=== PATIENT | female | born 1970 | race African-American/Black ===

== ENCOUNTER 2016-11-04 14:26 | Inpatient (IN) | payer OTHER ==
[~2016-11-04] VITALS: Ht 165.1 cm; Wt 54.4 kg
[~2016-11-04 14:26] MED LIST: AMLO10TA4 PO; ASPI-1159 PO; ATOR10TA PO; FERR-63 PO; FLUT1DIS3 IH; HYDR-4135 PO; HYDR-523 PO; LOSA50TA20 PO; METO50TA5 PO; POTA20TA82 PO
[2016-11-04] MEDS ORDERED: SODIUM CHLORIDE 0.9% 1000ML BAG (SEPSIS BOLUS) IV ONE (15:00)
[2016-11-04 15:28] LABS: HEMATOCRIT. 32.2 % (36.0-48.0); HEMOGLOBIN. 10.5 g/dL (12.0-16.0); MEAN CORPUSCULAR HEMOGLOBIN 27.1 pg (28.0-32.0); MEAN CORPUSCULAR VOLUME 83.3 fL (81.0-99.0); MEAN PLATELET VOLUME 8.3 fl (7.4-10.4); PLATELET 120 x1000/uL (130-400); RED BLOOD CELL COUNT 3.87 mill/uL (4.2-5.4); RED CELL DISTRIBUTION WIDTH 15.4 % (11.6-14.6)
[2016-11-04 15:30] LABS: CHLORIDE 104 mEq/L (98-107)
[2016-11-04 15:31] LABS: INR 1.1; PROTHROMBIN TIME 11.3 sec (9.4-11.6)
[2016-11-04 15:38] LABS: CARBON DIOXIDE 20 mEq/L (21-32)
[2016-11-04 17:46] LABS: PLATELET ESTIMATE SLIGHTLY DECREASED
[2016-11-04 23:00] VITALS: BP 121/68
[2016-11-04] MEDS ORDERED: HYDR100T31 PO (23:21)
[2016-11-04] MEDS ORDERED: MIRT7.5T11 PO (23:21)
[2016-11-04] MEDS ORDERED: BUTA-251 PO (23:21)
[2016-11-04] MEDS ORDERED: MAX PO (23:21)
[2016-11-04] MEDS ORDERED: ONDA4TAB50 PO (23:21)
[2016-11-04] MEDS ORDERED: BUTALBITAL/ACETAMINOPHEN/CAFFEINE 50/325/40MG TABLET PO PRN (23:45)
[2016-11-04] MEDS ORDERED: ONDANSETRON HCL 4MG TABLET PO PRN (23:45)
[2016-11-05] VITALS: BP 121/68
[2016-11-05] MEDS ORDERED: IPRATROPIUM/ALBUTEROL 0.5-3(2.5)MG/3ML NEB HHN PRN (00:30)
[2016-11-05 04:00] VITALS: BP 109/66
[2016-11-05] MEDS: HYDRALAZINE HCL 100MG TABLET PO SCH ×3 (05:52→21:21)
[2016-11-05 06:27] LABS: HEMATOCRIT. 29.5 % (36.0-48.0); HEMOGLOBIN. 9.6 g/dL (12.0-16.0); MEAN CORPUSCULAR HEMOGLOBIN 27.5 pg (28.0-32.0); MEAN CORPUSCULAR VOLUME 84.5 fL (81.0-99.0); MEAN PLATELET VOLUME 8.1 fl (7.4-10.4); PLATELET 87 x1000/uL (130-400); RED CELL DISTRIBUTION WIDTH 15.4 % (11.6-14.6)
[2016-11-05 08:00] VITALS: BP 114/71
[2016-11-05] MEDS: ASPIRIN 81MG EC TABLET PO SCH (08:31)
[2016-11-05] MEDS: METOPROLOL TARTRATE 50MG TABLET PO SCH ×2 (08:32→21:00)
[2016-11-05] MEDS: HYDROCODONE/ACETAMINOPHEN 5/325MG TABLET PO PRN ×2 (08:50→21:21)
[2016-11-05] MEDS ORDERED: POTASSIUM CHLORIDE 20MEQ TABLET SR PO SCH (09:00)
[2016-11-05] MEDS ORDERED: TRIAMTERENE/HYDROCHLOROTHIAZID 75/50MG TABLET PO SCH (09:00)
[2016-11-05 12:00] VITALS: BP 94/56
[2016-11-05 16:00] VITALS: BP 93/50
[2016-11-05 16:22] LABS: PLATELET ESTIMATE DECREASED
[2016-11-05 20:00] VITALS: BP 100/60
[2016-11-05] MEDS ORDERED: MIRTAZAPINE 7.5 MG PO SCH (21:00)
[2016-11-05] MEDS: MIRTAZAPINE 15MG TABLET PO SCH (21:20)
[2016-11-06] VITALS: BP 105/63
[2016-11-06 04:00] VITALS: BP 97/54
[2016-11-06] MEDS: HYDRALAZINE HCL 100MG TABLET PO SCH ×3 (05:28→21:30)
[2016-11-06 08:00] VITALS: BP 101/39
[2016-11-06] MEDS: ASPIRIN 81MG EC TABLET PO SCH (08:48)
[2016-11-06] MEDS: HYDROCODONE/ACETAMINOPHEN 5/325MG TABLET PO PRN (08:51)
[2016-11-06] MEDS: METOPROLOL TARTRATE 50MG TABLET PO SCH (09:00)
[2016-11-06 12:00] VITALS: BP 94/54
[2016-11-06 17:36] VITALS: BP 99/61
[2016-11-06 20:00] VITALS: BP 108/64
[2016-11-06] MEDS: MIRTAZAPINE 15MG TABLET PO SCH (21:29)
[2016-11-07] VITALS (7 sets, daily range): BP systolic 92–140; BP diastolic 57–68
[2016-11-07 05:59] LABS: BASOPHILS % 0.7 % (0.0-2.0); EOSINOPHILS % 1.6 % (0.0-5.0); HEMATOCRIT. 26.3 % (36.0-48.0); HEMOGLOBIN. 8.6 g/dL (12.0-16.0); LYMPHOCYTES % 26.9 % (20.0-50.0); MEAN CORPUSCULAR HEMOGLOBIN 27.2 pg (28.0-32.0); MEAN CORPUSCULAR VOLUME 83.6 fL (81.0-99.0); MEAN PLATELET VOLUME 8.1 fl (7.4-10.4); MONOCYTES % 9.4 % (2.0-8.0); NEUTROPHILS % 61.4 % (40.0-76.0); PLATELET 77 x1000/uL (130-400); RED BLOOD CELL COUNT 3.15 mill/uL (4.2-5.4); RED CELL DISTRIBUTION WIDTH 15.2 % (11.6-14.6)
[2016-11-07] MEDS: HYDRALAZINE HCL 100MG TABLET PO SCH ×2 (06:00→14:00)
[2016-11-07] MEDS: ASPIRIN 81MG EC TABLET PO SCH (09:00)
[2016-11-07] MEDS: MORPHINE SULFATE 2 MG/ML CPJ (NOT FOR IM USE) IV PRN ×2 (09:05→18:48)
[2016-11-07] MEDS: HYDROCODONE/ACETAMINOPHEN 5/325MG TABLET PO PRN (11:21)
[2016-11-07] MEDS ORDERED: POTASSIUM CHLORIDE 10MEQ TABLET SR PO SCH (18:30)
[2016-11-07] MEDS: MIRTAZAPINE 15MG TABLET PO SCH (21:19)
[2016-11-08] VITALS (7 sets, daily range): BP systolic 94–112; BP diastolic 48–69
[2016-11-08] MEDS: HYDROCODONE/ACETAMINOPHEN 5/325MG TABLET PO PRN (00:45)
[2016-11-08 05:21] LABS: BASOPHILS % 0.6 % (0.0-2.0); HEMATOCRIT. 23.6 % (36.0-48.0); HEMOGLOBIN. 7.7 g/dL (12.0-16.0); LYMPHOCYTES % 35.3 % (20.0-50.0); MEAN CORPUSCULAR HEMOGLOBIN 27.3 pg (28.0-32.0); MEAN CORPUSCULAR VOLUME 83.4 fL (81.0-99.0); MEAN PLATELET VOLUME 7.9 fl (7.4-10.4); MONOCYTES % 9.6 % (2.0-8.0); NEUTROPHILS % 52.5 % (40.0-76.0); PLATELET 70 x1000/uL (130-400); RED BLOOD CELL COUNT 2.83 mill/uL (4.2-5.4); RED CELL DISTRIBUTION WIDTH 15.4 % (11.6-14.6)
[2016-11-08 06:12] LABS: PHOSPHORUS 2.9 mg/dL (2.5-4.9)
[2016-11-08] MEDS ORDERED: POTASSIUM CHLORIDE 20MEQ TABLET SR PO NR (08:14)
[2016-11-08] MEDS: ASPIRIN 81MG EC TABLET PO SCH (09:33)
[2016-11-08] MEDS: METRONIDAZOLE 500MG TABLET PO SCH ×2 (13:11→21:56)
[2016-11-08] MEDS: HYDROMORPHONE HCL/PF 2MG/ML CPJ IV PRN ×2 (16:47→23:02)
[2016-11-08] MEDS: MIRTAZAPINE 15MG TABLET PO SCH (21:56)
[2016-11-09] VITALS (8 sets, daily range): BP systolic 90–120; BP diastolic 50–73
[2016-11-09] MEDS: ASPIRIN 81MG EC TABLET PO SCH (08:09)
[2016-11-09] MEDS: METRONIDAZOLE 500MG TABLET PO SCH (08:09)
[2016-11-09] MEDS: HYDROMORPHONE HCL/PF 2MG/ML CPJ IV PRN (08:11)
[2016-11-09 09:40] LABS: BASOPHILS % 0.7 % (0.0-2.0); EOSINOPHILS % 1.7 % (0.0-5.0); HEMATOCRIT. 27.6 % (36.0-48.0); HEMOGLOBIN. 8.9 g/dL (12.0-16.0); LYMPHOCYTES % 27.1 % (20.0-50.0); MEAN CORPUSCULAR HEMOGLOBIN 27.4 pg (28.0-32.0); MEAN CORPUSCULAR VOLUME 85.1 fL (81.0-99.0); MEAN PLATELET VOLUME 7.7 fl (7.4-10.4); MONOCYTES % 8.1 % (2.0-8.0); NEUTROPHILS % 62.4 % (40.0-76.0); PLATELET 96 x1000/uL (130-400); RED BLOOD CELL COUNT 3.24 mill/uL (4.2-5.4); RED CELL DISTRIBUTION WIDTH 15.6 % (11.6-14.6)
[2016-11-09] MEDS ORDERED: HEPARIN SODIUM 1,000 UNIT/1ML VIAL IV NR (14:30)
[2016-11-09] MEDS ORDERED: EPOETIN ALFA 4000UNITS/ML VIAL SUBCUT SCH (21:00)
== END 2016-11-09 18:20 | disposition home or self-care (01) | DRG 425 ==
LOC: ER 14:48 → 7WST 19:36 → EDBEDREQ 19:44 → CANRESERV 19:48 → ENRESERV 19:48
PROVIDERS: ADMIT Internal Medicine; ATTEND Internal Medicine
PROC: 5A1D60Z (ICD-10-PCS; principal; 2016-11-04)
DX: E87.70 Fluid overload, unspecified (principal); I13.2 Hypertensive heart and chronic kidney disease with heart failure and with stage 5 chronic kidney disease, or end stage renal disease; E43 Unspecified severe protein-calorie malnutrition; I95.9 Hypotension, unspecified; N18.6 End stage renal disease; I50.9 Heart failure, unspecified; Z95.2 Presence of prosthetic heart valve; N15.9 Renal tubulo-interstitial disease, unspecified; D25.9 Leiomyoma of uterus, unspecified; D63.8 Anemia in other chronic diseases classified elsewhere; J44.9 Chronic obstructive pulmonary disease, unspecified; K52.9 Noninfective gastroenteritis and colitis, unspecified; N20.0 Calculus of kidney; Z86.73 Personal history of transient ischemic attack (TIA), and cerebral infarction without residual deficits; Z68.20 Body mass index [BMI] 20.0-20.9, adult; Z68.1 Body mass index [BMI] 19.9 or less, adult; Z91.15 Patient's noncompliance with renal dialysis; Z99.2 Dependence on renal dialysis
CPT/HCPCS: 36415; 70450; 71010; 71250; 74176; 80048; 80053; 82270; 82728; 83540; 83550; 83605; 84100; 85025; 85610; 86850; 86870; 86900; 86920; 87040; 93005; 93306; 96374; 97162; 99285; A6261; J0885; J1170; J1644; J2270; J7030; J7040; P9016

== ENCOUNTER 2016-12-01 03:15 | Inpatient (IN) | payer OTHER ==
[~2016-12-01] VITALS: Ht 160 cm; Wt 64.4 kg
[2016-12-01] VITALS (7 sets, daily range): BP systolic 121–188; BP diastolic 59–103
[~2016-12-01 03:15] MED LIST changes: -AMLO10TA4 PO; -ATOR10TA PO; +BUTA-251 PO; -FERR-63 PO; -FLUT1DIS3 IH; -HYDR-4135 PO; -LOSA50TA20 PO; -METO50TA5 PO; +MIRT7.5T11 PO; +ONDA4TAB50 PO; -POTA20TA82 PO
[2016-12-01] MEDS ORDERED: KETOROLAC 30MG/ML VIAL IV STA (03:26)
[2016-12-01] MEDS ORDERED: ONDANSETRON HCL 4MG/2ML VIAL IV STA (03:26)
[2016-12-01 03:56] LABS: BASOPHILS % 1.6 % (0.0-2.0); EOSINOPHILS % 3.4 % (0.0-5.0); HEMATOCRIT. 26.7 % (36.0-48.0); LYMPHOCYTES % 36.3 % (20.0-50.0); MEAN CORPUSCULAR HEMOGLOBIN 29.5 pg (28.0-32.0); MEAN PLATELET VOLUME 7.9 fl (7.4-10.4); MONOCYTES % 7.4 % (2.0-8.0); NEUTROPHILS % 51.3 % (40.0-76.0); PLATELET 130 x1000/uL (130-400); RED BLOOD CELL COUNT 3.06 mill/uL (4.2-5.4); RED CELL DISTRIBUTION WIDTH 17.4 % (11.6-14.6)
[2016-12-01 04:04] LABS: HCG SCREEN NEGATIVE
[2016-12-01 04:10] LABS: INR 1.1; PROTHROMBIN TIME 11.3 sec (9.4-11.6)
[2016-12-01 04:12] LABS: CARBON DIOXIDE 32 mEq/L (21-32); CHLORIDE 104 mEq/L (98-107)
[2016-12-01] MEDS ORDERED: POTASSIUM CHLORIDE 20MEQ TABLET SR PO ONE (05:00)
[2016-12-01] MEDS ORDERED: POTASSIUM CHLORIDE INJ 40 MEQ in DEXT 5% WATER 250 ML IV ONE (05:00)
[2016-12-01] MEDS ORDERED: HYDRALAZINE 20MG/ML VIAL IV ONE (05:00)
[2016-12-01] MEDS ORDERED: MORPHINE SULFATE 4 MG/ML CPJ (NOT FOR IM USE) IV ONE (05:45)
[2016-12-01 06:58] LABS: CLARITY URINE CLOUDY (CLEAR); COLOR URINE YELLOW (YELLOW); GLUCOSE URINE NEGATIVE (NEGATIVE); KETONES URINE NEGATIVE (NEGATIVE); LEUKOCYTE ESTERASE URINE 2+ (NEGATIVE); NITRITE URINE NEGATIVE (NEGATIVE); OCCULT BLOOD URINE 1+ (NEGATIVE); PH URINE 6.5 (4.5-8.0); PROTEIN URINE 2+ (NEGATIVE); SPECIFIC GRAVITY URINE 1.012 (1.005-1.030); UROBILINOGEN URINE 0.2 E.U./dL (0.2-1.0)
[2016-12-01] MEDS ORDERED: IPRATROPIUM/ALBUTEROL 0.5-3(2.5)MG/3ML NEB INH PRN (10:45)
[2016-12-01] MEDS ORDERED: ONDANSETRON HCL 4MG/2ML VIAL IV PRN (10:45)
[2016-12-01] MEDS ORDERED: DIPHENHYDRAMINE 50MG/ML VIAL IV PRN (10:45)
[2016-12-01] MEDS ORDERED: ACETAMINOPHEN 325MG TABLET PO PRN (10:45)
[2016-12-01] MEDS: CLONIDINE 0.1MG TABLET PO PRN (14:14)
[2016-12-01] MEDS: MORPHINE SULFATE 4 MG/ML CPJ (NOT FOR IM USE) IV PRN ×2 (14:15→18:25)
[2016-12-01] MEDS ORDERED: AMLO10TA80 PO (15:46)
[2016-12-01] MEDS ORDERED: METO50TA5 PO (15:46)
[2016-12-01] MEDS: METOPROLOL TARTRATE 50MG TABLET PO SCH ×3 (16:31→20:46)
[2016-12-01] MEDS: AMLODIPINE 10MG TABLET PO SCH (16:31)
[2016-12-01] MEDS ORDERED: CEFTRIAXONE 1 G PREMIX 50 ML IV SCH (17:00)
[2016-12-01] MEDS ORDERED: ENOXAPARIN 60MG/0.6ML SYR SUBCUT SCH (18:30)
[2016-12-01] MEDS: HYDROCODONE/ACETAMINOPHEN 5/325MG TABLET PO PRN (20:45)
[2016-12-02] VITALS (8 sets, daily range): BP systolic 148–177; BP diastolic 76–89
[2016-12-02] MEDS: MORPHINE SULFATE 4 MG/ML CPJ (NOT FOR IM USE) IV PRN ×3 (03:29→12:03)
[2016-12-02 06:49] LABS: BASOPHILS % 0.8 % (0.0-2.0); EOSINOPHILS % 3.8 % (0.0-5.0); HEMATOCRIT. 25.5 % (36.0-48.0); HEMOGLOBIN. 8.5 g/dL (12.0-16.0); LYMPHOCYTES % 24.5 % (20.0-50.0); MEAN CORPUSCULAR HEMOGLOBIN 29.3 pg (28.0-32.0); MEAN CORPUSCULAR VOLUME 88.2 fL (81.0-99.0); MEAN PLATELET VOLUME 7.8 fl (7.4-10.4); MONOCYTES % 7.2 % (2.0-8.0); NEUTROPHILS % 63.7 % (40.0-76.0); PLATELET 119 x1000/uL (130-400); RED CELL DISTRIBUTION WIDTH 17.9 % (11.6-14.6)
[2016-12-02] MEDS: AMLODIPINE 10MG TABLET PO SCH (08:04)
[2016-12-02] MEDS: METOPROLOL TARTRATE 50MG TABLET PO SCH (08:04)
[2016-12-02] MEDS: CLONIDINE 0.1MG TABLET PO PRN (12:02)
[2016-12-02] MEDS: HYDROCODONE/ACETAMINOPHEN 5/325MG TABLET PO PRN (16:06)
== END 2016-12-02 16:35 | disposition home or self-care (01) | DRG 194 ==
LOC: ER 03:15 → 7WST 05:53 → ENRESERV 07:02
PROVIDERS: ADMIT Internal Medicine; ATTEND Internal Medicine
PROC: 5A1D00Z (ICD-10-PCS; principal; 2016-12-01)
DX: I13.2 Hypertensive heart and chronic kidney disease with heart failure and with stage 5 chronic kidney disease, or end stage renal disease (principal); N18.6 End stage renal disease; E27.8 Other specified disorders of adrenal gland; E44.0 Moderate protein-calorie malnutrition; R16.0 Hepatomegaly, not elsewhere classified; N39.0 Urinary tract infection, site not specified; R10.33 Periumbilical pain; J44.9 Chronic obstructive pulmonary disease, unspecified; R74.8 Abnormal levels of other serum enzymes; I50.9 Heart failure, unspecified; N20.0 Calculus of kidney; I70.90 Unspecified atherosclerosis; E87.6 Hypokalemia; D63.1 Anemia in chronic kidney disease; Z86.73 Personal history of transient ischemic attack (TIA), and cerebral infarction without residual deficits; Z99.2 Dependence on renal dialysis; Z87.442 Personal history of urinary calculi
CPT/HCPCS: 36415; 74176; 76700; 80048; 80053; 80061; 81001; 83690; 84443; 84484; 84703; 85025; 85610; 87040; 87077; 87086; 87186; 96365; 96375; 99285; C1893; J0360; J0696; J1650; J1885; J2270; J2405; J3480; J7030; J7050; J7060

== ENCOUNTER 2017-01-04 23:49 | Inpatient (IN) | payer OTHER ==
[~2017-01-04] VITALS: Ht 160 cm; Wt 62.3 kg
[~2017-01-04 23:49] MED LIST changes: +AMLO10TA80 PO; -ASPI-1159 PO; -BUTA-251 PO; -HYDR-523 PO; +METO50TA5 PO; -MIRT7.5T11 PO; -ONDA4TAB50 PO
[2017-01-05 00:52] LABS: CARBON DIOXIDE 26 mEq/L (21-32); CHLORIDE 102 mEq/L (98-107); TROPONIN I 0.04 ng/mL (0.00-0.04)
[2017-01-05 00:57] LABS: BASOPHILS % 1.7 % (0.0-2.0); EOSINOPHILS % 3.5 % (0.0-5.0); HEMATOCRIT. 31.3 % (36.0-48.0); HEMOGLOBIN. 10.4 g/dL (12.0-16.0); LYMPHOCYTES % 33.1 % (20.0-50.0); MEAN CORPUSCULAR HEMOGLOBIN 29.1 pg (28.0-32.0); MEAN CORPUSCULAR VOLUME 87.4 fL (81.0-99.0); MEAN PLATELET VOLUME 7.6 fl (7.4-10.4); MONOCYTES % 10.6 % (2.0-8.0); NEUTROPHILS % 51.1 % (40.0-76.0); PLATELET 194 x1000/uL (130-400); RED BLOOD CELL COUNT 3.59 mill/uL (4.2-5.4); RED CELL DISTRIBUTION WIDTH 16.2 % (11.6-14.6)
[2017-01-05 01:01] LABS: PROTHROMBIN TIME 10.9 sec (9.4-11.6)
[2017-01-05 01:04] LABS: HCG SCREEN NEGATIVE
[2017-01-05] MEDS ORDERED: ACETAMINOPHEN 325MG TABLET PO ONE (01:30)
[2017-01-05 04:00] VITALS: BP 182/77
[2017-01-05 04:20] VITALS: BP 182/77
[2017-01-05] MEDS ORDERED: IPRATROPIUM/ALBUTEROL 0.5-3(2.5)MG/3ML NEB HHN PRN (05:00)
[2017-01-05] MEDS ORDERED: CLONIDINE 0.1MG TABLET PO PRN (05:00)
[2017-01-05] MEDS: METOPROLOL TARTRATE 50MG TABLET PO SCH ×2 (05:14→21:36)
[2017-01-05] MEDS: HYDROCODONE/ACETAMINOPHEN 10/325MG TABLET PO PRN ×3 (05:15→18:45)
[2017-01-05 07:15] VITALS: BP 156/70
[2017-01-05] MEDS: AMLODIPINE 10MG TABLET PO SCH (09:00)
[2017-01-05 10:20] LABS: BASOPHILS % 1.1 % (0.0-2.0); EOSINOPHILS % 3.5 % (0.0-5.0); HEMATOCRIT. 30.2 % (36.0-48.0); HEMOGLOBIN. 9.9 g/dL (12.0-16.0); LYMPHOCYTES % 37.8 % (20.0-50.0); MEAN CORPUSCULAR HEMOGLOBIN 28.4 pg (28.0-32.0); MEAN CORPUSCULAR VOLUME 86.5 fL (81.0-99.0); MEAN PLATELET VOLUME 7.5 fl (7.4-10.4); MONOCYTES % 9.3 % (2.0-8.0); NEUTROPHILS % 48.3 % (40.0-76.0); PLATELET 193 x1000/uL (130-400); RED CELL DISTRIBUTION WIDTH 16.3 % (11.6-14.6)
[2017-01-05 10:56] LABS: CARBON DIOXIDE 28 mEq/L (21-32); CHLORIDE 102 mEq/L (98-107); HDL CHOLESTEROL 53 mg/dL (40-59); LDL CHOLESTEROL 97 mg/dL (5-100)
[2017-01-05 11:25] VITALS: BP 190/83
[2017-01-05 15:32] VITALS: BP 125/85
[2017-01-06] VITALS: BP 152/75
[2017-01-06] MEDS: HYDROCODONE/ACETAMINOPHEN 10/325MG TABLET PO PRN ×4 (02:44→21:54)
[2017-01-06 04:00] VITALS: BP 153/72
[2017-01-06 08:00] VITALS: BP 143/72
[2017-01-06] MEDS: AMLODIPINE 10MG TABLET PO SCH (09:02)
[2017-01-06] MEDS: METOPROLOL TARTRATE 50MG TABLET PO SCH ×2 (09:02→20:31)
[2017-01-06 12:00] VITALS: BP 147/65
[2017-01-06 12:02] LABS: CARBON DIOXIDE 26 mEq/L (21-32); CHLORIDE 105 mEq/L (98-107)
[2017-01-06 12:15] LABS: HEMOGLOBIN 10.2 g/dL (12.0-16.0); MEAN CORPUSCULAR HEMOGLOBIN 28.3 pg (28.0-32.0); MEAN CORPUSCULAR VOLUME 86.3 fL (81.0-99.0); PLATELET 200 x1000/uL (130-400); RED BLOOD CELL COUNT 3.59 mill/uL (4.2-5.4)
[2017-01-06 16:00] VITALS: BP 161/78
[2017-01-06 20:00] VITALS: BP 138/74
[2017-01-07] VITALS: BP 142/79
[2017-01-07 04:00] VITALS: BP_SYST 144; BP_SYST 188; BP_DIAS 72; BP_DIAS 86
[2017-01-07] MEDS: HYDROCODONE/ACETAMINOPHEN 10/325MG TABLET PO PRN ×3 (04:05→16:28)
[2017-01-07 08:12] VITALS: BP 145/70
[2017-01-07] MEDS: METOPROLOL TARTRATE 50MG TABLET PO SCH (09:00)
[2017-01-07] MEDS: AMLODIPINE 10MG TABLET PO SCH (09:00)
[2017-01-07 12:00] VITALS: BP 182/88
[2017-01-07] MEDS ORDERED: HEPARIN SODIUM 1,000 UNIT/1ML VIAL IV NR (15:45)
[2017-01-07 16:00] VITALS: BP 154/65
[2017-01-07 18:07] VITALS: BP 154/65
== END 2017-01-07 18:20 | disposition home or self-care (01) | DRG 113 ==
LOC: ER 23:49 → 6WST 01-05 01:19 → EDBEDREQ 01-05 02:24 → ENRESERV 01-05 02:39
PROVIDERS: ADMIT Internal Medicine; ATTEND Internal Medicine
DX: J06.9 Acute upper respiratory infection, unspecified (principal); J96.00 Acute respiratory failure, unspecified whether with hypoxia or hypercapnia; I13.2 Hypertensive heart and chronic kidney disease with heart failure and with stage 5 chronic kidney disease, or end stage renal disease; Z93.0 Tracheostomy status; N18.6 End stage renal disease; E88.09 Other disorders of plasma-protein metabolism, not elsewhere classified; E44.1 Mild protein-calorie malnutrition; D63.8 Anemia in other chronic diseases classified elsewhere; E87.6 Hypokalemia; Z60.2 Problems related to living alone; I25.10 Atherosclerotic heart disease of native coronary artery without angina pectoris; I50.9 Heart failure, unspecified; J44.9 Chronic obstructive pulmonary disease, unspecified; Z95.1 Presence of aortocoronary bypass graft; I69.351 Hemiplegia and hemiparesis following cerebral infarction affecting right dominant side; Z99.2 Dependence on renal dialysis; Z99.3 Dependence on wheelchair; Z68.24 Body mass index [BMI] 24.0-24.9, adult
CPT/HCPCS: 36415; 70450; 71010; 74000; 80053; 80061; 83036; 83605; 83690; 84443; 84484; 84703; 85025; 85027; 85610; 87040; 87804; 93005; 99285; J1644; J7030

== ENCOUNTER 2017-07-22 08:06 | Emergency (ER) | payer MEDICAID ==
[~2017-07-22] VITALS: Ht 160 cm; Wt 65.0 kg
[~2017-07-22 08:06] MED LIST changes: -AMLO10TA80 PO; +ASPI-1159 PO; +DIPH50CA38 PO; +METO-539 PO; -METO50TA5 PO
[2017-07-22] MEDS ORDERED: MORPHINE SULFATE 4 MG/ML CPJ (NOT FOR IM USE) IV STA (08:18)
[2017-07-22] MEDS ORDERED: ONDANSETRON HCL 4MG/2ML VIAL IV STA (08:18)
[2017-07-22 08:40] LABS: CLARITY URINE CLEAR (CLEAR); COLOR URINE YELLOW (YELLOW); KETONES URINE NEGATIVE (NEGATIVE); LEUKOCYTE ESTERASE URINE TRACE (NEGATIVE); NITRITE URINE NEGATIVE (NEGATIVE); OCCULT BLOOD URINE TRACE (NEGATIVE); PROTEIN URINE NEGATIVE (NEGATIVE); UROBILINOGEN URINE 0.2 E.U./dL (0.2-1.0)
[2017-07-22 08:51] LABS: BASOPHILS % 1.4 % (0.0-2.0); HEMATOCRIT. 32.5 % (36.0-48.0); HEMOGLOBIN. 10.8 g/dL (12.0-16.0); LYMPHOCYTES % 31.3 % (20.0-50.0); MEAN CORPUSCULAR HEMOGLOBIN 30.5 pg (28.0-32.0); MEAN CORPUSCULAR VOLUME 91.5 fL (81.0-99.0); MONOCYTES % 6.1 % (2.0-8.0); NEUTROPHILS % 58.2 % (40.0-76.0); PLATELET 144 x1000/uL (130-400); RED BLOOD CELL COUNT 3.55 mill/uL (4.2-5.4); RED CELL DISTRIBUTION WIDTH 16.2 % (11.6-14.6)
[2017-07-22 08:56] LABS: CHLORIDE 108 mEq/L (98-107)
[2017-07-22 08:59] LABS: INR 1.1
[2017-07-22 09:21] LABS: HCG SCREEN NEGATIVE
[2017-07-22 10:59] VITALS: BP 229/110
== END 2017-07-22 11:35 | disposition home or self-care (01) ==
LOC: ER 08:13
DX: R10.9 Unspecified abdominal pain (principal); R11.0 Nausea; I13.2 Hypertensive heart and chronic kidney disease with heart failure and with stage 5 chronic kidney disease, or end stage renal disease; I50.9 Heart failure, unspecified; N18.6 End stage renal disease; Z86.73 Personal history of transient ischemic attack (TIA), and cerebral infarction without residual deficits; Z95.1 Presence of aortocoronary bypass graft; Z99.2 Dependence on renal dialysis; Z98.890 Other specified postprocedural states; Z79.82 Long term (current) use of aspirin; Z79.899 Other long term (current) drug therapy
CPT/HCPCS: 36415; 74176; 80053; 81003; 83690; 84703; 85025; 85610; 93005; 96374; 96375; 99285; J2270; J2405

== ENCOUNTER 2017-09-02 18:04 | Emergency (ER) | payer SELFPAY ==
[~2017-09-02] VITALS: Ht 160 cm; Wt 70.0 kg
[2017-09-02] MEDS ORDERED: MORPHINE SULFATE 4 MG/ML CPJ (NOT FOR IM USE) IV STA (23:29)
[2017-09-02] MEDS ORDERED: ONDANSETRON HCL 4MG/2ML VIAL IV STA (23:29)
[2017-09-02 23:55] LABS: BASOPHILS % 1.5 % (0.0-2.0); HEMOGLOBIN. 12.2 g/dL (12.0-16.0); LYMPHOCYTES % 43.3 % (20.0-50.0); MEAN CORPUSCULAR HEMOGLOBIN 29.3 pg (28.0-32.0); MEAN PLATELET VOLUME 7.7 fl (7.4-10.4); MONOCYTES % 8.5 % (2.0-8.0); NEUTROPHILS % 43.7 % (40.0-76.0); PLATELET 167 x1000/uL (130-400); RED BLOOD CELL COUNT 4.16 mill/uL (4.2-5.4); RED CELL DISTRIBUTION WIDTH 15.7 % (11.6-14.6)
[2017-09-03 00:02] LABS: CHLORIDE 106 mEq/L (98-107)
[2017-09-03 06:31] VITALS: BP 194/91
== END 2017-09-03 06:44 | disposition home or self-care (01) ==
LOC: ER 18:04
DX: R10.30 Lower abdominal pain, unspecified (principal); R07.89 Other chest pain; R11.0 Nausea; I13.11 Hypertensive heart and chronic kidney disease without heart failure, with stage 5 chronic kidney disease, or end stage renal disease; N18.6 End stage renal disease; I69.351 Hemiplegia and hemiparesis following cerebral infarction affecting right dominant side; I69.322 Dysarthria following cerebral infarction; Z99.2 Dependence on renal dialysis
CPT/HCPCS: 36415; 71045; 74176; 80053; 83690; 84484; 85025; 93005; 96374; 96375; 99285; C1893; J2270; J2405; Z7610

== ENCOUNTER 2017-10-01 21:02 | Emergency (ER) | payer SELFPAY ==
[~2017-10-01] VITALS: Ht 160 cm; Wt 70.0 kg
[2017-10-01] MEDS ORDERED: IBUPROFEN 600MG TABLET PO ONE (22:30)
[2017-10-01] MEDS ORDERED: HYDROCODONE/ACETAMINOPHEN 5/325MG TABLET PO ONE (22:30)
[2017-10-01] MEDS ORDERED: CLONIDINE 0.2MG TABLET PO ONE (22:45)
[2017-10-02 00:30] LABS: HCG SCREEN INDETERMINATE
[2017-10-02 03:40] VITALS: BP 146/76
== END 2017-10-02 04:48 | disposition home or self-care (01) ==
LOC: ER 21:02
DX: S30.1XXA Contusion of abdominal wall, initial encounter (principal); S20.219A Contusion of unspecified front wall of thorax, initial encounter; S80.01XA Contusion of right knee, initial encounter; I13.2 Hypertensive heart and chronic kidney disease with heart failure and with stage 5 chronic kidney disease, or end stage renal disease; N18.6 End stage renal disease; I50.9 Heart failure, unspecified; W01.0XXA Fall on same level from slipping, tripping and stumbling without subsequent striking against object, initial encounter; Y93.9 Activity, unspecified; Y92.89 Other specified places as the place of occurrence of the external cause; Z95.1 Presence of aortocoronary bypass graft; Z99.2 Dependence on renal dialysis; Z86.73 Personal history of transient ischemic attack (TIA), and cerebral infarction without residual deficits
CPT/HCPCS: 36415; 71250; 74176; 84702; 84703; 99285

== ENCOUNTER 2017-12-22 10:58 | Inpatient (IN) | payer MEDICAID ==
[~2017-12-22] VITALS: Ht 157.5 cm; Wt 71.7 kg
[2017-12-22] MEDS ORDERED: IBUPROFEN 600MG TABLET PO STA (11:22)
[2017-12-22 12:12] LABS: PROTHROMBIN TIME 10.3 sec (9.1-11.1)
[2017-12-22 12:15] LABS: CHLORIDE 98 mEq/L (98-107)
[2017-12-22 12:19] LABS: BASOPHILS % 0.8 % (0.0-2.0); EOSINOPHILS % 1.4 % (0.0-5.0); HEMATOCRIT. 36.2 % (36.0-48.0); HEMOGLOBIN. 12.4 g/dL (12.0-16.0); LYMPHOCYTES % 17.9 % (20.0-50.0); MEAN CORPUSCULAR HEMOGLOBIN 31.7 pg (28.0-32.0); MEAN CORPUSCULAR VOLUME 92.4 fL (81.0-99.0); MEAN PLATELET VOLUME 8.2 fl (7.4-10.4); MONOCYTES % 8.1 % (2.0-8.0); NEUTROPHILS % 71.8 % (40.0-76.0); PLATELET 199 x1000/uL (130-400); RED BLOOD CELL COUNT 3.92 mill/uL (4.2-5.4); RED CELL DISTRIBUTION WIDTH 16.1 % (11.6-14.6)
[2017-12-22] MEDS ORDERED: HYDROCODONE/ACETAMINOPHEN 5/325MG TABLET PO ONE (13:00)
[2017-12-22] MEDS ORDERED: DOCUSATE SODIUM 100MG CAPSULE PO PRN (14:30)
[2017-12-22] MEDS ORDERED: LORAZEPAM 2MG/ML CPJ IV PRN (14:30)
[2017-12-22] MEDS: CLONIDINE 0.1MG TABLET PO PRN (14:43)
[2017-12-22] MEDS: METOPROLOL TARTRATE 25MG TABLET PO SCH ×2 (14:55→22:38)
[2017-12-22 15:25] VITALS: BP 130/75
[2017-12-22] MEDS: AMLODIPINE 10MG TABLET PO SCH (16:00)
[2017-12-22] MEDS ORDERED: HYDR-4135 PO (16:34)
[2017-12-22] MEDS ORDERED: COR12 PO (16:34)
[2017-12-22] MEDS ORDERED: PROT40 PO (16:34)
[2017-12-22] MEDS ORDERED: AMLO10TA80 PO (16:34)
[2017-12-22] MEDS: HYDROCODONE/ACETAMINOPHEN 5/325MG TABLET PO PRN (17:51)
[2017-12-22 20:00] VITALS: BP 140/63
[2017-12-22] MEDS: MORPHINE SULFATE 4 MG/ML CPJ (NOT FOR IM USE) IV PRN (20:44)
[2017-12-23] VITALS: BP 135/75
[2017-12-23 03:13] VITALS: BP 155/76
[2017-12-23] MEDS: MORPHINE SULFATE 4 MG/ML CPJ (NOT FOR IM USE) IV PRN ×4 (03:14→22:00)
[2017-12-23] MEDS: ONDANSETRON HCL 4MG/2ML INJ IV PRN ×3 (03:17→15:48)
[2017-12-23 06:29] LABS: BASOPHILS % 0.9 % (0.0-2.0); EOSINOPHILS % 0.4 % (0.0-5.0); HEMATOCRIT. 32.7 % (36.0-48.0); HEMOGLOBIN. 10.7 g/dL (12.0-16.0); LYMPHOCYTES % 16.4 % (20.0-50.0); MEAN CORPUSCULAR HEMOGLOBIN 30.8 pg (28.0-32.0); MEAN CORPUSCULAR VOLUME 93.5 fL (81.0-99.0); MEAN PLATELET VOLUME 7.5 fl (7.4-10.4); NEUTROPHILS % 72.3 % (40.0-76.0); PLATELET 149 x1000/uL (130-400); RED CELL DISTRIBUTION WIDTH 15.8 % (11.6-14.6)
[2017-12-23 06:54] LABS: CHLORIDE 99 mEq/L (98-107)
[2017-12-23 07:14] LABS: HDL CHOLESTEROL 55 mg/dL (40-59); LDL CHOLESTEROL 93 mg/dL (5-100)
[2017-12-23 08:00] VITALS: BP 176/83
[2017-12-23] MEDS: ACETAMINOPHEN 325MG TABLET PO PRN ×3 (08:21→22:02)
[2017-12-23] MEDS: METOPROLOL TARTRATE 25MG TABLET PO SCH ×2 (09:00→21:00)
[2017-12-23] MEDS: AMLODIPINE 10MG TABLET PO SCH ×2 (09:00→13:14)
[2017-12-23 12:00] VITALS: BP 174/94
[2017-12-23] MEDS: LEVOFLOXACIN 500MG PREMIX 100 ML IV NR ×2 (12:00→16:05)
[2017-12-23] MEDS ORDERED: VANCOMYCIN 1500MG in DEXTROSE 5% WATER 250ML IV SCH (12:00)
[2017-12-23] MEDS: CLONIDINE 0.1MG TABLET PO PRN (12:41)
[2017-12-23] MEDS: HYDRALAZINE HCL 50MG TABLET PO SCH ×2 (14:52→21:10)
[2017-12-23 16:00] VITALS: BP 176/86
[2017-12-23 16:50] LABS: CLARITY URINE CLOUDY (CLEAR); COLOR URINE YELLOW (YELLOW); KETONES URINE NEGATIVE (NEGATIVE); LEUKOCYTE ESTERASE URINE 2+ (NEGATIVE); NITRITE URINE NEGATIVE (NEGATIVE); OCCULT BLOOD URINE NEGATIVE (NEGATIVE); PH URINE 8.5 (4.5-8.0); PROTEIN URINE 1+ (NEGATIVE); SPECIFIC GRAVITY URINE 1.012 (1.005-1.030)
[2017-12-23 21:37] VITALS: BP 129/72
[2017-12-24] VITALS: BP 104/58
[2017-12-24 04:00] VITALS: BP 152/78
[2017-12-24] MEDS: ACETAMINOPHEN 325MG TABLET PO PRN ×3 (04:10→20:08)
[2017-12-24] MEDS: MORPHINE SULFATE 4 MG/ML CPJ (NOT FOR IM USE) IV PRN ×3 (04:10→20:08)
[2017-12-24] MEDS: HYDRALAZINE HCL 50MG TABLET PO SCH ×3 (05:14→21:21)
[2017-12-24] MEDS: ONDANSETRON HCL 4MG/2ML INJ IV PRN ×2 (05:19→12:36)
[2017-12-24 06:47] LABS: BASOPHILS % 0.5 % (0.0-2.0); EOSINOPHILS % 0.6 % (0.0-5.0); HEMATOCRIT. 30.2 % (36.0-48.0); HEMOGLOBIN. 10.2 g/dL (12.0-16.0); MEAN CORPUSCULAR HEMOGLOBIN 31.2 pg (28.0-32.0); MEAN CORPUSCULAR VOLUME 92.4 fL (81.0-99.0); MEAN PLATELET VOLUME 7.8 fl (7.4-10.4); MONOCYTES % 9.6 % (2.0-8.0); NEUTROPHILS % 81.3 % (40.0-76.0); PLATELET 121 x1000/uL (130-400); RED BLOOD CELL COUNT 3.27 mill/uL (4.2-5.4); RED CELL DISTRIBUTION WIDTH 15.7 % (11.6-14.6)
[2017-12-24 08:00] VITALS: BP 111/63
[2017-12-24] MEDS: AMLODIPINE 10MG TABLET PO SCH (08:13)
[2017-12-24] MEDS: METOPROLOL TARTRATE 25MG TABLET PO SCH ×2 (08:14→20:11)
[2017-12-24] MEDS ORDERED: SODIUM BICARBONATE 4% (2.4MEQ) 5ML VIAL IV ONE (10:17)
[2017-12-24] MEDS ORDERED: LIDOCAINE HCL 1% 20ML VIAL (Pyxis) INJ ONE (10:17)
[2017-12-24 12:00] VITALS: BP 155/78
[2017-12-24 16:00] VITALS: BP 102/53
[2017-12-24] MEDS: HYDROCODONE/ACETAMINOPHEN 5/325MG TABLET PO PRN (16:33)
[2017-12-24 20:00] VITALS: BP 113/65
[2017-12-25] VITALS: BP 99/48
[2017-12-25 04:00] VITALS: BP 108/59
[2017-12-25] MEDS: HYDROCODONE/ACETAMINOPHEN 5/325MG TABLET PO PRN ×2 (04:24→10:36)
[2017-12-25] MEDS: HYDRALAZINE HCL 50MG TABLET PO SCH ×3 (05:55→21:14)
[2017-12-25 08:00] VITALS: BP 110/59
[2017-12-25] MEDS: METOPROLOL TARTRATE 25MG TABLET PO SCH ×2 (08:31→20:49)
[2017-12-25] MEDS: AMLODIPINE 10MG TABLET PO SCH (08:31)
[2017-12-25] MEDS ORDERED: LEVOFLOXACIN 250MG PREMIX 50 ML IV SCH (11:00)
[2017-12-25 12:00] VITALS: BP 127/68
[2017-12-25] MEDS ORDERED: VANCOMYCIN 750 MG PREMIX 150 ML IV SCH (12:30)
[2017-12-25] MEDS: MORPHINE SULFATE 4 MG/ML CPJ (NOT FOR IM USE) IV PRN ×2 (15:54→22:00)
[2017-12-25 16:00] VITALS: BP 129/64
[2017-12-25 20:00] VITALS: BP 154/76
[2017-12-26] VITALS: BP 120/63
[2017-12-26 04:00] VITALS: BP 138/67
[2017-12-26] MEDS: MORPHINE SULFATE 4 MG/ML CPJ (NOT FOR IM USE) IV PRN ×4 (04:27→23:00)
[2017-12-26] MEDS: HYDRALAZINE HCL 50MG TABLET PO SCH ×3 (05:35→21:15)
[2017-12-26 08:00] VITALS: BP 139/60
[2017-12-26] MEDS: METOPROLOL TARTRATE 25MG TABLET PO SCH ×2 (08:28→21:15)
[2017-12-26] MEDS: AMLODIPINE 10MG TABLET PO SCH (08:28)
[2017-12-26 12:00] VITALS: BP 123/62
[2017-12-26 13:17] LABS: HEMATOCRIT. 30.9 % (36.0-48.0); HEMOGLOBIN. 10.3 g/dL (12.0-16.0); MEAN CORPUSCULAR HEMOGLOBIN 30.6 pg (28.0-32.0); MEAN CORPUSCULAR VOLUME 91.9 fL (81.0-99.0); MEAN PLATELET VOLUME 8.3 fl (7.4-10.4); PLATELET 144 x1000/uL (130-400); RED BLOOD CELL COUNT 3.36 mill/uL (4.2-5.4); RED CELL DISTRIBUTION WIDTH 15.9 % (11.6-14.6)
[2017-12-26 14:04] LABS: PLATELET ESTIMATE NORMAL
[2017-12-26 16:00] VITALS: BP 145/68
[2017-12-26 20:00] VITALS: BP 154/68
[2017-12-27] VITALS: BP 145/68
[2017-12-27 04:00] VITALS: BP 166/76
[2017-12-27] MEDS: MORPHINE SULFATE 4 MG/ML CPJ (NOT FOR IM USE) IV PRN ×3 (04:48→18:17)
[2017-12-27] MEDS: ONDANSETRON HCL 4MG/2ML INJ IV PRN (04:53)
[2017-12-27] MEDS: HYDRALAZINE HCL 50MG TABLET PO SCH ×3 (05:20→20:58)
[2017-12-27 08:02] LABS: HEMATOCRIT. 29.8 % (36.0-48.0); MEAN CORPUSCULAR HEMOGLOBIN 30.8 pg (28.0-32.0); MEAN CORPUSCULAR VOLUME 91.7 fL (81.0-99.0); MEAN PLATELET VOLUME 7.8 fl (7.4-10.4); PLATELET 128 x1000/uL (130-400); RED BLOOD CELL COUNT 3.24 mill/uL (4.2-5.4); RED CELL DISTRIBUTION WIDTH 15.7 % (11.6-14.6)
[2017-12-27] MEDS: METOPROLOL TARTRATE 25MG TABLET PO SCH ×2 (10:21→20:57)
[2017-12-27] MEDS: AMLODIPINE 10MG TABLET PO SCH (10:22)
[2017-12-27] MEDS ORDERED: LEVOFLOXACIN 250MG TABLET PO SCH (11:00)
[2017-12-27 12:00] VITALS: BP 159/65
[2017-12-27] MEDS ORDERED: VANCOMYCIN 1 G PREMIX 200 ML IV NR (14:00)
[2017-12-27 16:00] VITALS: BP 154/73
[2017-12-27 17:30] LABS: PLATELET ESTIMATE DECREASED
[2017-12-27 20:00] VITALS: BP 196/72
[2017-12-27] MEDS: CLONIDINE 0.1MG TABLET PO PRN (20:06)
[2017-12-27 20:45] VITALS: BP 178/70
[2017-12-28] VITALS: BP 156/79
[2017-12-28] MEDS ORDERED: MORPHINE SULFATE 4 MG/ML CPJ (NOT FOR IM USE) IV PRN (00:30)
[2017-12-28 04:00] VITALS: BP 168/70
[2017-12-28] MEDS: HYDRALAZINE HCL 50MG TABLET PO SCH ×3 (05:21→21:56)
[2017-12-28 08:31] VITALS: BP 185/73
[2017-12-28] MEDS: ACETAMINOPHEN 325MG TABLET PO PRN (08:39)
[2017-12-28] MEDS: AMLODIPINE 10MG TABLET PO SCH (08:39)
[2017-12-28] MEDS: METOPROLOL TARTRATE 25MG TABLET PO SCH ×2 (08:39→21:56)
[2017-12-28] MEDS: MORPHINE SULFATE 4 MG/ML CPJ (NOT FOR IM USE) IV PRN ×3 (10:43→23:51)
[2017-12-28 12:00] VITALS: BP 165/63
[2017-12-28 16:00] VITALS: BP 178/82
[2017-12-28] MEDS: CEFAZOLIN 2000MG in DEXTROSE 5% WATER 100ML IV SCH (16:25)
[2017-12-28] MEDS: CLONIDINE 0.1MG TABLET PO PRN (19:05)
[2017-12-28 20:00] VITALS: BP 171/71
[2017-12-29] VITALS (15 sets, daily range): BP systolic 135–245; BP diastolic 61–114
[2017-12-29] MEDS: MORPHINE SULFATE 4 MG/ML CPJ (NOT FOR IM USE) IV PRN ×3 (05:44→21:54)
[2017-12-29] MEDS: HYDRALAZINE HCL 50MG TABLET PO SCH ×3 (06:37→21:52)
[2017-12-29 07:41] LABS: INR 1.1; PARTIAL THROMBOPLASTIN TIME 33.7 sec (23.4-31.0); PROTHROMBIN TIME 10.7 sec (9.1-11.1)
[2017-12-29] MEDS ORDERED: LIDOCAINE HCL 1% 20ML VIAL (Pyxis) INJ ONE ×2 (07:49→13:06)
[2017-12-29] MEDS ORDERED: SODIUM BICARBONATE 4% (2.4MEQ) 5ML VIAL IV ONE (07:49)
[2017-12-29] MEDS: AMLODIPINE 10MG TABLET PO SCH (08:04)
[2017-12-29] MEDS: METOPROLOL TARTRATE 25MG TABLET PO SCH ×2 (08:21→21:51)
[2017-12-29] MEDS ORDERED: FENTANYL CITRATE/PF 50MCG/ML 2ML VIAL IV ONE (08:30)
[2017-12-29] MEDS ORDERED: FENTANYL CITRATE/PF 50MCG/ML 2ML VIAL ONE (08:51)
[2017-12-29] MEDS: CEFAZOLIN 2000MG in DEXTROSE 5% WATER 100ML IV SCH (16:00)
[2017-12-30] VITALS (7 sets, daily range): BP systolic 142–190; BP diastolic 65–89
[2017-12-30] MEDS: CLONIDINE 0.1MG TABLET PO PRN ×2 (03:48→23:42)
[2017-12-30] MEDS: MORPHINE SULFATE 4 MG/ML CPJ (NOT FOR IM USE) IV PRN ×4 (03:53→21:02)
[2017-12-30] MEDS: HYDRALAZINE HCL 50MG TABLET PO SCH ×3 (06:32→21:01)
[2017-12-30] MEDS: AMLODIPINE 10MG TABLET PO SCH (09:10)
[2017-12-30] MEDS: METOPROLOL TARTRATE 25MG TABLET PO SCH ×2 (09:11→21:01)
[2017-12-30 13:49] LABS: BASOPHILS % 0.6 % (0.0-2.0); EOSINOPHILS % 6.2 % (0.0-5.0); HEMATOCRIT. 27.8 % (36.0-48.0); HEMOGLOBIN. 9.3 g/dL (12.0-16.0); LYMPHOCYTES % 26.7 % (20.0-50.0); MEAN CORPUSCULAR HEMOGLOBIN 30.7 pg (28.0-32.0); MEAN CORPUSCULAR VOLUME 91.8 fL (81.0-99.0); MEAN PLATELET VOLUME 8.2 fl (7.4-10.4); MONOCYTES % 12.3 % (2.0-8.0); NEUTROPHILS % 54.2 % (40.0-76.0); PLATELET 163 x1000/uL (130-400); RED BLOOD CELL COUNT 3.03 mill/uL (4.2-5.4); RED CELL DISTRIBUTION WIDTH 15.7 % (11.6-14.6)
[2017-12-30] MEDS: CEFAZOLIN 2000MG in DEXTROSE 5% WATER 100ML IV SCH (16:21)
[2017-12-30] MEDS: DIPHENHYDRAMINE 50MG/ML VIAL IV PRN (23:14)
[2017-12-31] VITALS (8 sets, daily range): BP systolic 143–183; BP diastolic 66–83
[2017-12-31] MEDS: MORPHINE SULFATE 4 MG/ML CPJ (NOT FOR IM USE) IV PRN ×4 (03:25→23:27)
[2017-12-31] MEDS: DIPHENHYDRAMINE 50MG/ML VIAL IV PRN ×3 (05:19→19:53)
[2017-12-31] MEDS: HYDRALAZINE HCL 50MG TABLET PO SCH ×3 (05:23→21:02)
[2017-12-31 07:11] LABS: BASOPHILS % 0.8 % (0.0-2.0); HEMATOCRIT. 26.2 % (36.0-48.0); HEMOGLOBIN. 8.8 g/dL (12.0-16.0); LYMPHOCYTES % 36.1 % (20.0-50.0); MEAN CORPUSCULAR HEMOGLOBIN 30.6 pg (28.0-32.0); MEAN PLATELET VOLUME 7.7 fl (7.4-10.4); MONOCYTES % 12.4 % (2.0-8.0); NEUTROPHILS % 44.7 % (40.0-76.0); PLATELET 186 x1000/uL (130-400); RED BLOOD CELL COUNT 2.88 mill/uL (4.2-5.4); RED CELL DISTRIBUTION WIDTH 15.4 % (11.6-14.6)
[2017-12-31] MEDS: METOPROLOL TARTRATE 25MG TABLET PO SCH ×2 (09:00→21:02)
[2017-12-31] MEDS: AMLODIPINE 10MG TABLET PO SCH (09:45)
[2017-12-31] MEDS: CEFAZOLIN 2000MG in DEXTROSE 5% WATER 100ML IV SCH (16:51)
[2018-01-01] MEDS: DIPHENHYDRAMINE 50MG/ML VIAL IV PRN ×3 (02:55→22:45)
[2018-01-01 04:00] VITALS: BP 138/75
[2018-01-01] MEDS: HYDRALAZINE HCL 50MG TABLET PO SCH ×3 (05:58→21:02)
[2018-01-01] MEDS: MORPHINE SULFATE 4 MG/ML CPJ (NOT FOR IM USE) IV PRN ×3 (05:58→21:02)
[2018-01-01 07:44] LABS: BASOPHILS % 0.9 % (0.0-2.0); EOSINOPHILS % 6.8 % (0.0-5.0); HEMATOCRIT. 26.7 % (36.0-48.0); HEMOGLOBIN. 8.8 g/dL (12.0-16.0); LYMPHOCYTES % 35.5 % (20.0-50.0); MEAN CORPUSCULAR HEMOGLOBIN 29.8 pg (28.0-32.0); MEAN CORPUSCULAR VOLUME 90.5 fL (81.0-99.0); MEAN PLATELET VOLUME 7.7 fl (7.4-10.4); MONOCYTES % 10.4 % (2.0-8.0); NEUTROPHILS % 46.4 % (40.0-76.0); PLATELET 193 x1000/uL (130-400); RED BLOOD CELL COUNT 2.95 mill/uL (4.2-5.4); RED CELL DISTRIBUTION WIDTH 15.6 % (11.6-14.6)
[2018-01-01] MEDS: METOPROLOL TARTRATE 25MG TABLET PO SCH ×2 (09:19→21:02)
[2018-01-01] MEDS: AMLODIPINE 10MG TABLET PO SCH (09:19)
[2018-01-01 12:00] VITALS: BP 141/94
[2018-01-01] MEDS: CEFAZOLIN 2000MG in DEXTROSE 5% WATER 100ML IV SCH (15:24)
[2018-01-01 16:00] VITALS: BP 144/65
[2018-01-01 20:00] VITALS: BP 146/74
[2018-01-01 23:56] VITALS: BP 146/62
[2018-01-02 03:30] VITALS: BP 166/77
[2018-01-02] MEDS: MORPHINE SULFATE 4 MG/ML CPJ (NOT FOR IM USE) IV PRN (03:31)
[2018-01-02] MEDS: HYDRALAZINE HCL 50MG TABLET PO SCH ×3 (05:16→21:29)
[2018-01-02] MEDS: DIPHENHYDRAMINE 50MG/ML VIAL IV PRN ×3 (05:26→15:49)
[2018-01-02 08:00] VITALS: BP 134/61
[2018-01-02] MEDS: AMLODIPINE 10MG TABLET PO SCH (09:01)
[2018-01-02] MEDS: METOPROLOL TARTRATE 25MG TABLET PO SCH ×2 (09:01→21:29)
[2018-01-02 12:00] VITALS: BP 129/83
[2018-01-02] MEDS: HYDROCODONE/ACETAMINOPHEN 5/325MG TABLET PO PRN ×2 (12:46→21:29)
[2018-01-02] MEDS: CEFAZOLIN 2000MG in DEXTROSE 5% WATER 100ML IV SCH (15:49)
[2018-01-02 16:00] VITALS: BP 142/67
[2018-01-02 20:00] VITALS: BP 167/72
[2018-01-02] MEDS: DIPHENHYDRAMINE 25MG CAPSULE PO PRN (21:24)
[2018-01-03] VITALS: BP 148/74
[2018-01-03] MEDS: DIPHENHYDRAMINE 25MG CAPSULE PO PRN ×4 (02:47→23:06)
[2018-01-03 04:00] VITALS: BP 147/75
[2018-01-03] MEDS: METOPROLOL TARTRATE 25MG TABLET PO SCH ×2 (06:01→21:21)
[2018-01-03] MEDS: HYDROCODONE/ACETAMINOPHEN 5/325MG TABLET PO PRN ×4 (06:01→21:21)
[2018-01-03] MEDS: HYDRALAZINE HCL 50MG TABLET PO SCH ×3 (06:02→21:21)
[2018-01-03 07:24] LABS: BASOPHILS % 1.1 % (0.0-2.0); EOSINOPHILS % 7.4 % (0.0-5.0); HEMATOCRIT. 25.4 % (36.0-48.0); HEMOGLOBIN. 8.6 g/dL (12.0-16.0); LYMPHOCYTES % 30.5 % (20.0-50.0); MEAN CORPUSCULAR HEMOGLOBIN 30.6 pg (28.0-32.0); MEAN CORPUSCULAR VOLUME 90.1 fL (81.0-99.0); MEAN PLATELET VOLUME 7.2 fl (7.4-10.4); MONOCYTES % 8.1 % (2.0-8.0); NEUTROPHILS % 52.9 % (40.0-76.0); PLATELET 201 x1000/uL (130-400); RED BLOOD CELL COUNT 2.82 mill/uL (4.2-5.4)
[2018-01-03 08:00] VITALS: BP 148/68
[2018-01-03] MEDS: AMLODIPINE 10MG TABLET PO SCH (09:00)
[2018-01-03 12:00] VITALS: BP 159/65
[2018-01-03 16:00] VITALS: BP 166/76
[2018-01-03] MEDS: CEFAZOLIN 2000MG in DEXTROSE 5% WATER 100ML IV SCH (16:33)
[2018-01-03] MEDS: CLONIDINE 0.1MG TABLET PO PRN (16:34)
[2018-01-03 20:00] VITALS: BP 139/63
[2018-01-04] VITALS: BP 151/67
[2018-01-04] MEDS: HYDROCODONE/ACETAMINOPHEN 5/325MG TABLET PO PRN ×4 (02:42→21:09)
[2018-01-04 04:00] VITALS: BP 155/69
[2018-01-04] MEDS: HYDRALAZINE HCL 50MG TABLET PO SCH ×3 (05:38→20:59)
[2018-01-04] MEDS: DIPHENHYDRAMINE 25MG CAPSULE PO PRN ×3 (06:09→20:58)
[2018-01-04 09:00] VITALS: BP 164/74
[2018-01-04] MEDS: METOPROLOL TARTRATE 25MG TABLET PO SCH ×2 (09:09→20:58)
[2018-01-04] MEDS: AMLODIPINE 10MG TABLET PO SCH (09:09)
[2018-01-04 13:00] VITALS: BP 154/66
[2018-01-04 16:00] VITALS: BP 164/69
[2018-01-04] MEDS: CEFAZOLIN 2000MG in DEXTROSE 5% WATER 100ML IV SCH (16:40)
[2018-01-04 20:00] VITALS: BP 174/79
[2018-01-05] VITALS: BP 147/63
[2018-01-05 03:54] VITALS: BP 188/83
[2018-01-05] MEDS: HYDROCODONE/ACETAMINOPHEN 5/325MG TABLET PO PRN ×3 (03:57→13:50)
[2018-01-05] MEDS: CLONIDINE 0.1MG TABLET PO PRN (03:57)
[2018-01-05] MEDS: DIPHENHYDRAMINE 25MG CAPSULE PO PRN (03:57)
[2018-01-05] MEDS: HYDRALAZINE HCL 50MG TABLET PO SCH ×2 (06:01→13:49)
[2018-01-05 08:00] VITALS: BP 143/68
[2018-01-05] MEDS: AMLODIPINE 10MG TABLET PO SCH (09:00)
[2018-01-05] MEDS: METOPROLOL TARTRATE 25MG TABLET PO SCH (09:00)
[2018-01-05 10:34] LABS: BASOPHILS % 1.5 % (0.0-2.0); EOSINOPHILS % 6.3 % (0.0-5.0); HEMATOCRIT. 24.1 % (36.0-48.0); HEMOGLOBIN. 8.2 g/dL (12.0-16.0); LYMPHOCYTES % 28.8 % (20.0-50.0); MEAN CORPUSCULAR HEMOGLOBIN 30.6 pg (28.0-32.0); MEAN CORPUSCULAR VOLUME 90.4 fL (81.0-99.0); MEAN PLATELET VOLUME 7.3 fl (7.4-10.4); MONOCYTES % 3.4 % (2.0-8.0); PLATELET 163 x1000/uL (130-400); RED BLOOD CELL COUNT 2.66 mill/uL (4.2-5.4); RED CELL DISTRIBUTION WIDTH 15.4 % (11.6-14.6)
[2018-01-05] MEDS ORDERED: HEPARIN SODIUM 1,000 UNIT/1ML VIAL IV NR ×3 (12:00→12:30)
[2018-01-05 12:13] VITALS: BP_SYST 166; BP_SYST 183; BP_DIAS 60; BP_DIAS 84
[2018-01-05] MEDS ORDERED: HEPARIN SODIUM 1,000 UNIT/1ML VIAL IV ONE (12:15)
[2018-01-05 14:17] VITALS: BP 166/60
== END 2018-01-05 16:24 | disposition home health service (06) | DRG 721 ==
LOC: ER 10:58 → 8WST 13:07 → EDBEDREQ 13:10 → ENRESERV 14:07
PROVIDERS: ADMIT Hospitalist; ATTEND Hospitalist
PROC: 5A1D70Z Performance of Urinary Filtration, Intermittent, Less than 6 Hours Per Day (ICD-10-PCS; principal; 2017-12-23)
PROC: 0JPT3XZ Removal of Tunneled Vascular Access Device from Trunk Subcutaneous Tissue and Fascia, Percutaneous Approach (ICD-10-PCS; 2017-12-24)
PROC: 5A1D70Z Performance of Urinary Filtration, Intermittent, Less than 6 Hours Per Day (ICD-10-PCS; 2017-12-28)
PROC: 0JH63XZ Insertion of Tunneled Vascular Access Device into Chest Subcutaneous Tissue and Fascia, Percutaneous Approach (ICD-10-PCS; 2017-12-29)
PROC: 02HV33Z Insertion of Infusion Device into Superior Vena Cava, Percutaneous Approach (ICD-10-PCS; 2017-12-29)
PROC: B518YZA Fluoroscopy of Superior Vena Cava using Other Contrast, Guidance (ICD-10-PCS; 2017-12-29)
PROC: B548ZZA Ultrasonography of Superior Vena Cava, Guidance (ICD-10-PCS; 2017-12-29)
PROC: 02HV33Z Insertion of Infusion Device into Superior Vena Cava, Percutaneous Approach (ICD-10-PCS; 2017-12-29)
PROC: B518YZA Fluoroscopy of Superior Vena Cava using Other Contrast, Guidance (ICD-10-PCS; 2017-12-29)
PROC: B548ZZA Ultrasonography of Superior Vena Cava, Guidance (ICD-10-PCS; 2017-12-29)
PROC: 5A1D70Z Performance of Urinary Filtration, Intermittent, Less than 6 Hours Per Day (ICD-10-PCS; 2018-01-02)
PROC: 5A1D70Z Performance of Urinary Filtration, Intermittent, Less than 6 Hours Per Day (ICD-10-PCS; 2018-01-04)
DX: T80.211A Bloodstream infection due to central venous catheter, initial encounter (principal); A41.01 Sepsis due to Methicillin susceptible Staphylococcus aureus; I12.0 Hypertensive chronic kidney disease with stage 5 chronic kidney disease or end stage renal disease; E44.0 Moderate protein-calorie malnutrition; I69.351 Hemiplegia and hemiparesis following cerebral infarction affecting right dominant side; N18.6 End stage renal disease; J40 Bronchitis, not specified as acute or chronic; B95.61 Methicillin susceptible Staphylococcus aureus infection as the cause of diseases classified elsewhere; I25.10 Atherosclerotic heart disease of native coronary artery without angina pectoris; Y84.8 Other medical procedures as the cause of abnormal reaction of the patient, or of later complication, without mention of misadventure at the time of the procedure; Z99.2 Dependence on renal dialysis; Z95.5 Presence of coronary angioplasty implant and graft; Z88.6 Allergy status to analgesic agent; Z68.28 Body mass index [BMI] 28.0-28.9, adult
CPT/HCPCS: 36415; 36558; 36569; 36589; 71045; 76937; 77001; 80048; 80061; 80202; 83605; 84145; 84484; 87070; 87077; 87804; 93005; 93306; 93970; 99152; 99153; 99285; C1725; C1750; C1769; C1893; J0690; J1200; J1642; J1644; J1956; J2270; J2405; J3010; J3370; J3490; J7030; J7040; J7050; J7060; Q0163

== ENCOUNTER 2018-03-29 07:20 | Inpatient (IN) | payer MEDICAID ==
[~2018-03-29] VITALS: Ht 160 cm; Wt 73.9 kg
[~2018-03-29 07:20] MED LIST changes: +AMLO10TA80 PO; +COR12 PO; -DIPH50CA38 PO; +HYDR-4135 PO; -METO-539 PO; +PROT40 PO
[2018-03-29] MEDS ORDERED: ASPIRIN 81MG TABLET PO ONE (08:45)
[2018-03-29] MEDS ORDERED: CLONIDINE 0.2MG TABLET PO ONE (08:45)
[2018-03-29 09:30] LABS: BASOPHILS % 0.6 % (0.0-2.0); EOSINOPHILS % 10.6 % (0.0-5.0); HEMATOCRIT. 29.9 % (36.0-48.0); HEMOGLOBIN. 9.9 g/dL (12.0-16.0); LYMPHOCYTES % 18.9 % (20.0-50.0); MEAN CORPUSCULAR VOLUME 93.6 fL (81.0-99.0); MEAN PLATELET VOLUME 7.7 fl (7.4-10.4); MONOCYTES % 7.8 % (2.0-8.0); NEUTROPHILS % 62.1 % (40.0-76.0); PLATELET 164 x1000/uL (130-400); RED BLOOD CELL COUNT 3.19 mill/uL (4.2-5.4); RED CELL DISTRIBUTION WIDTH 15.9 % (11.6-14.6)
[2018-03-29 09:35] LABS: CHLORIDE 102 mEq/L (98-107)
[2018-03-29] MEDS ORDERED: ACETAMINOPHEN 325MG TABLET PO PRN (14:15)
[2018-03-29] MEDS ORDERED: ONDANSETRON HCL 4MG/2ML INJ IV PRN (14:15)
[2018-03-29] MEDS ORDERED: CLONIDINE 0.1MG TABLET PO PRN (14:15)
[2018-03-29 15:30] VITALS: BP 160/88
[2018-03-29 16:00] VITALS: BP 160/88
[2018-03-29] MEDS ORDERED: B50 MT (19:02)
[2018-03-29] MEDS ORDERED: METO1TAB40 PO (19:02)
[2018-03-29] MEDS ORDERED: DOCU-138 MT (19:02)
[2018-03-29 20:00] VITALS: BP 113/47
[2018-03-29] MEDS: ENOXAPARIN 30MG/0.3ML SYR SUBCUT SCH (21:07)
[2018-03-29] MEDS: METOPROLOL TARTRATE 25MG TABLET PO SCH (21:08)
[2018-03-29] MEDS: MORPHINE SULFATE 4 MG/ML CPJ (NOT FOR IM USE) IV PRN (21:48)
[2018-03-30] VITALS: BP 126/56
[2018-03-30 00:08] LABS: *AMPHETAMINES SCREEN URINE NEGATIVE (NEGATIVE); *BARBITURATES SCREEN URINE NEGATIVE (NEGATIVE); *COCAINE SCREEN URINE NEGATIVE (NEGATIVE); METHADONE URINE SCREEN NEGATIVE (NEGATIVE)
[2018-03-30 00:09] LABS: *BENZODIAZEPINES SCREEN URINE NEGATIVE (NEGATIVE); CANNABINOID URINE SCREEN NEGATIVE (NEGATIVE); PHENCYCLIDINE URINE SCREEN NEGATIVE (NEGATIVE)
[2018-03-30 00:22] LABS: OPIATES URINE SCREEN PRESUMTIVE POSITIVE (NEGATIVE)
[2018-03-30] MEDS: MORPHINE SULFATE 4 MG/ML CPJ (NOT FOR IM USE) IV PRN ×3 (02:36→14:57)
[2018-03-30 04:00] VITALS: BP 138/93
[2018-03-30 08:00] VITALS: BP 152/72
[2018-03-30] MEDS: METOPROLOL TARTRATE 25MG TABLET PO SCH (08:49)
[2018-03-30] MEDS ORDERED: ASPIRIN 81MG TABLET PO SCH (09:00)
[2018-03-30] MEDS ORDERED: LOSARTAN POTASSIUM 50 MG TABLET PO SCH (09:00)
[2018-03-30 10:34] LABS: BASOPHILS % 0.9 % (0.0-2.0); EOSINOPHILS % 10.1 % (0.0-5.0); HEMATOCRIT. 29.8 % (36.0-48.0); HEMOGLOBIN. 9.6 g/dL (12.0-16.0); LYMPHOCYTES % 26.9 % (20.0-50.0); MEAN CORPUSCULAR HEMOGLOBIN 30.1 pg (28.0-32.0); MEAN CORPUSCULAR VOLUME 93.2 fL (81.0-99.0); MEAN PLATELET VOLUME 7.4 fl (7.4-10.4); MONOCYTES % 10.4 % (2.0-8.0); NEUTROPHILS % 51.7 % (40.0-76.0); PLATELET 166 x1000/uL (130-400); RED CELL DISTRIBUTION WIDTH 16.1 % (11.6-14.6)
[2018-03-30 12:00] VITALS: BP 113/56
[2018-03-30] MEDS ORDERED: IPRATROPIUM/ALBUTEROL 0.5-3(2.5)MG/3ML NEB HHN PRN (17:15)
[2018-03-30] MEDS ORDERED: IPRATROPIUM/ALBUTEROL 0.5-3(2.5)MG/3ML NEB HHN SCH (18:00)
[2018-03-30] MEDS: ENOXAPARIN 30MG/0.3ML SYR SUBCUT SCH (18:13)
[2018-03-30 19:15] LABS: T4 FREE 1.32 ng/dL (0.76-1.46)
[2018-03-30 20:00] VITALS: BP 131/59
[2018-03-30 21:45] VITALS: BP 137/64
== END 2018-03-30 21:40 | disposition home or self-care (01) | DRG 203 ==
LOC: ER 07:20 → 8WST 12:51 → ENRESERV 13:50 → 8WST 03-30 15:17
PROVIDERS: ADMIT Internal Medicine; ATTEND Internal Medicine
PROC: 5A1D70Z Performance of Urinary Filtration, Intermittent, Less than 6 Hours Per Day (ICD-10-PCS; principal; 2018-03-29)
PROC: 5A1D70Z Performance of Urinary Filtration, Intermittent, Less than 6 Hours Per Day (ICD-10-PCS; 2018-03-30)
DX: M94.0 Chondrocostal junction syndrome [Tietze] (principal); J96.00 Acute respiratory failure, unspecified whether with hypoxia or hypercapnia; I13.2 Hypertensive heart and chronic kidney disease with heart failure and with stage 5 chronic kidney disease, or end stage renal disease; E11.22 Type 2 diabetes mellitus with diabetic chronic kidney disease; N18.6 End stage renal disease; I69.351 Hemiplegia and hemiparesis following cerebral infarction affecting right dominant side; I16.0 Hypertensive urgency; I25.10 Atherosclerotic heart disease of native coronary artery without angina pectoris; D63.8 Anemia in other chronic diseases classified elsewhere; E87.6 Hypokalemia; I50.9 Heart failure, unspecified; H54.7 Unspecified visual loss; F41.9 Anxiety disorder, unspecified; H26.9 Unspecified cataract; K57.90 Diverticulosis of intestine, part unspecified, without perforation or abscess without bleeding; I35.9 Nonrheumatic aortic valve disorder, unspecified; Z90.11 Acquired absence of right breast and nipple; Z86.79 Personal history of other diseases of the circulatory system; Z95.1 Presence of aortocoronary bypass graft; Z95.3 Presence of xenogenic heart valve; Z99.2 Dependence on renal dialysis; Z88.6 Allergy status to analgesic agent; Z79.82 Long term (current) use of aspirin; Z79.899 Other long term (current) drug therapy
CPT/HCPCS: 36415; 71045; 78582; 80048; 80061; 80305; 83880; 84439; 84443; 84481; 84484; 93005; 93306; 99285; A9558; J1650; J2270

== ENCOUNTER 2018-07-29 14:13 | Inpatient (IN) | payer MEDICARE, MEDICAID ==
[~2018-07-29] VITALS: Ht 160 cm; Wt 95.8 kg
[~2018-07-29 14:13] MED LIST changes: -ASPI-1159 PO; +ASPI-1393 PO; +B50 MT; +DOCU-138 MT; +METO1TAB40 PO
[2018-07-29 19:31] LABS: BASOPHILS % 0.9 % (0.0-2.0); EOSINOPHILS % 9.1 % (0.0-5.0); HEMOGLOBIN. 11.4 g/dL (12.0-16.0); LYMPHOCYTES % 37.8 % (20.0-50.0); MEAN CORPUSCULAR HEMOGLOBIN 31.5 pg (28.0-32.0); MEAN PLATELET VOLUME 7.6 fl (7.4-10.4); MONOCYTES % 7.5 % (2.0-8.0); NEUTROPHILS % 44.7 % (40.0-76.0); PLATELET 160 x1000/uL (130-400); RED BLOOD CELL COUNT 3.61 mill/uL (4.2-5.4); RED CELL DISTRIBUTION WIDTH 16.2 % (11.6-14.6)
[2018-07-29 19:33] LABS: CHLORIDE 104 mEq/L (98-107)
[2018-07-29] MEDS ORDERED: HYDRALAZINE HCL 25MG TABLET PO ONE (21:00)
[2018-07-29] MEDS ORDERED: HYDROCODONE/ACETAMINOPHEN 5/325MG TABLET PO ONE (21:00)
[2018-07-29] MEDS ORDERED: AMLODIPINE 10MG TABLET PO ONE (21:00)
[2018-07-29 21:58] LABS: CLARITY URINE CLEAR (CLEAR); COLOR URINE YELLOW (YELLOW); KETONES URINE NEGATIVE (NEGATIVE); LEUKOCYTE ESTERASE URINE TRACE (NEGATIVE); NITRITE URINE NEGATIVE (NEGATIVE); OCCULT BLOOD URINE NEGATIVE (NEGATIVE); PH URINE 8.5 (4.5-8.0); PROTEIN URINE 1+ (NEGATIVE); SPECIFIC GRAVITY URINE 1.012 (1.005-1.030); UROBILINOGEN URINE 0.2 E.U./dL (0.2-1.0)
[2018-07-29 22:12] LABS: *AMPHETAMINES SCREEN URINE NEGATIVE (NEGATIVE); *BARBITURATES SCREEN URINE NEGATIVE (NEGATIVE); *BENZODIAZEPINES SCREEN URINE NEGATIVE (NEGATIVE); *COCAINE SCREEN URINE NEGATIVE (NEGATIVE)
[2018-07-29 22:13] LABS: CANNABINOID URINE SCREEN NEGATIVE (NEGATIVE); METHADONE URINE SCREEN NEGATIVE (NEGATIVE); PHENCYCLIDINE URINE SCREEN NEGATIVE (NEGATIVE)
[2018-07-29 22:31] LABS: OPIATES URINE SCREEN PRESUMTIVE POSITIVE (NEGATIVE)
[2018-07-29] MEDS ORDERED: ACETAMINOPHEN 325MG TABLET PO PRN (23:15)
[2018-07-29] MEDS ORDERED: ONDANSETRON HCL 4MG/2ML INJ IV PRN (23:15)
[2018-07-29] MEDS ORDERED: GUAIFENESIN 200MG/10ML SUGAR FREE UDC PO PRN (23:15)
[2018-07-29] MEDS ORDERED: DOCUSATE SODIUM 100MG CAPSULE PO PRN (23:15)
[2018-07-29] MEDS ORDERED: CLONIDINE 0.1MG TABLET PO PRN (23:15)
[2018-07-29] MEDS ORDERED: LEVOFLOXACIN 500MG PREMIX 100 ML IV SCH ×2 (23:15→23:30)
[2018-07-30 01:45] VITALS: BP 160/73
[2018-07-30 04:00] VITALS: BP 144/63
[2018-07-30] MEDS: HYDROCODONE/ACETAMINOPHEN 5/325MG TABLET PO PRN ×2 (05:03→12:46)
[2018-07-30 08:00] VITALS: BP 141/66
[2018-07-30] MEDS: AMLODIPINE 10MG TABLET PO SCH (09:00)
[2018-07-30] MEDS: LISINOPRIL 20MG TABLET PO SCH (09:00)
[2018-07-30 09:51] LABS: BASOPHILS % 0.6 % (0.0-2.0); EOSINOPHILS % 10.1 % (0.0-5.0); HEMATOCRIT. 36.4 % (36.0-48.0); HEMOGLOBIN. 12.2 g/dL (12.0-16.0); LYMPHOCYTES % 31.7 % (20.0-50.0); MEAN CORPUSCULAR HEMOGLOBIN 31.3 pg (28.0-32.0); MEAN CORPUSCULAR VOLUME 93.7 fL (81.0-99.0); MEAN PLATELET VOLUME 7.4 fl (7.4-10.4); MONOCYTES % 7.7 % (2.0-8.0); NEUTROPHILS % 49.9 % (40.0-76.0); PLATELET 181 x1000/uL (130-400); RED BLOOD CELL COUNT 3.88 mill/uL (4.2-5.4); RED CELL DISTRIBUTION WIDTH 16.3 % (11.6-14.6)
[2018-07-30 10:02] LABS: CHLORIDE 106 mEq/L (98-107)
[2018-07-30 12:00] VITALS: BP 164/74
[2018-07-30] MEDS: CARVEDILOL 12.5MG TABLET PO SCH (12:30)
[2018-07-30] MEDS: HYDRALAZINE HCL 25MG TABLET PO SCH ×2 (14:00→21:18)
[2018-07-30] MEDS: ASPIRIN 81MG TABLET PO SCH (14:05)
[2018-07-30 16:00] VITALS: BP 163/79
[2018-07-30] MEDS: DIPHENHYDRAMINE 50MG/ML VIAL IV PRN (16:22)
[2018-07-30 20:00] VITALS: BP 121/59
[2018-07-30] MEDS: ENOXAPARIN 40MG/0.4ML SYR SUBCUT SCH (21:19)
[2018-07-31] VITALS: BP 124/69
[2018-07-31 04:00] VITALS: BP 120/54
[2018-07-31] MEDS: HYDROCODONE/ACETAMINOPHEN 5/325MG TABLET PO PRN (05:13)
[2018-07-31] MEDS: HYDRALAZINE HCL 25MG TABLET PO SCH ×2 (05:50→14:43)
[2018-07-31 06:47] LABS: BASOPHILS % 0.7 % (0.0-2.0); EOSINOPHILS % 8.2 % (0.0-5.0); HEMATOCRIT. 32.3 % (36.0-48.0); HEMOGLOBIN. 10.9 g/dL (12.0-16.0); LYMPHOCYTES % 36.9 % (20.0-50.0); MEAN CORPUSCULAR HEMOGLOBIN 31.6 pg (28.0-32.0); MEAN CORPUSCULAR VOLUME 93.5 fL (81.0-99.0); MEAN PLATELET VOLUME 7.7 fl (7.4-10.4); MONOCYTES % 7.1 % (2.0-8.0); NEUTROPHILS % 47.1 % (40.0-76.0); PLATELET 141 x1000/uL (130-400); RED BLOOD CELL COUNT 3.45 mill/uL (4.2-5.4); RED CELL DISTRIBUTION WIDTH 15.9 % (11.6-14.6)
[2018-07-31] MEDS: AMLODIPINE 10MG TABLET PO SCH (10:28)
[2018-07-31] MEDS: LISINOPRIL 20MG TABLET PO SCH (10:29)
[2018-07-31] MEDS: ASPIRIN 81MG TABLET PO SCH (10:29)
[2018-07-31] MEDS: CARVEDILOL 12.5MG TABLET PO SCH (10:29)
[2018-07-31] MEDS: DIPHENHYDRAMINE 50MG/ML VIAL IV PRN (10:30)
[2018-07-31] MEDS: ENOXAPARIN 40MG/0.4ML SYR SUBCUT SCH (10:33)
[2018-07-31] MEDS ORDERED: MECLIZINE 25MG TABLET PO PRN (11:45)
[2018-07-31 16:46] VITALS: BP 135/65
[2018-07-31] MEDS ORDERED: LEVOFLOXACIN 250MG PREMIX 50 ML IV SCH (21:00)
[2018-07-31] MEDS ORDERED: ATORVASTATIN CALCIUM 10MG TABLET PO SCH (21:00)
== END 2018-07-31 17:12 | disposition home or self-care (01) | DRG 640 ==
LOC: ER 14:13 → 6WST 22:25 → EDBEDREQTM 22:28 → EDBEDREQ 22:28 → SUPCPDRO 23:12 → ENRESERV 07-30 00:29
PROVIDERS: ADMIT Hospitalist; ATTEND Hospitalist
PROC: 5A1D70Z Performance of Urinary Filtration, Intermittent, Less than 6 Hours Per Day (ICD-10-PCS; principal; 2018-07-30)
DX: E87.70 Fluid overload, unspecified (principal); N18.6 End stage renal disease; I13.2 Hypertensive heart and chronic kidney disease with heart failure and with stage 5 chronic kidney disease, or end stage renal disease; E87.8 Other disorders of electrolyte and fluid balance, not elsewhere classified; R07.89 Other chest pain; D63.1 Anemia in chronic kidney disease; E11.22 Type 2 diabetes mellitus with diabetic chronic kidney disease; I25.2 Old myocardial infarction; I50.9 Heart failure, unspecified; I25.10 Atherosclerotic heart disease of native coronary artery without angina pectoris; Z86.73 Personal history of transient ischemic attack (TIA), and cerebral infarction without residual deficits; Z95.1 Presence of aortocoronary bypass graft; Z99.2 Dependence on renal dialysis; Z88.8 Allergy status to other drugs, medicaments and biological substances; Z79.82 Long term (current) use of aspirin; Z79.899 Other long term (current) drug therapy
CPT/HCPCS: 36415; 71045; 80048; 80305; 83605; 83880; 84484; 93005; 93970; 99285; J1200; J1650; J1956; J8597

== ENCOUNTER 2019-04-26 15:44 | Inpatient (IN) | payer MEDICARE, MEDICAID ==
[~2019-04-26] VITALS: Ht 160 cm; Wt 79.8 kg
[~2019-04-26 15:44] MED LIST changes: -ASPI-1393 PO; +ASPI-1497 PO
[2019-04-26] MEDS ORDERED: PREDNISONE 20MG TABLET PO STA (21:04)
[2019-04-26] MEDS ORDERED: IPRATROPIUM/ALBUTEROL 0.5-3(2.5)MG/3ML NEB HHN ONE (21:15)
[2019-04-26] MEDS ORDERED: HYDROCODONE/ACETAMINOPHEN 5/325MG TABLET PO ONE (21:15)
[2019-04-26 23:15] LABS: BASOPHILS % 0.7 % (0.0-2.0); HEMATOCRIT. 34.1 % (36.0-48.0); HEMOGLOBIN. 11.2 g/dL (12.0-16.0); LYMPHOCYTES % 25.2 % (20.0-50.0); MEAN CORPUSCULAR HEMOGLOBIN 29.7 pg (28.0-32.0); MEAN CORPUSCULAR VOLUME 90.2 fL (81.0-99.0); MEAN PLATELET VOLUME 7.3 fl (7.4-10.4); MONOCYTES % 6.8 % (2.0-8.0); NEUTROPHILS % 62.3 % (40.0-76.0); PLATELET 220 x1000/uL (130-400); RED BLOOD CELL COUNT 3.78 mill/uL (4.2-5.4); RED CELL DISTRIBUTION WIDTH 16.9 % (11.6-14.6)
[2019-04-26 23:23] LABS: CHLORIDE 103 mEq/L (98-107); PARTIAL THROMBOPLASTIN TIME 29.9 sec (23.4-31.0)
[2019-04-27] MEDS ORDERED: MORPHINE SULFATE 4 MG/ML CPJ (NOT FOR IM USE) IV ONE ×2 (00:30→06:45)
[2019-04-27] MEDS ORDERED: HYDRALAZINE 20MG/ML VIAL IV ONE (00:30)
[2019-04-27] MEDS ORDERED: ONDANSETRON HCL 4MG/2ML INJ IV ONE ×2 (00:30→06:45)
[2019-04-27] MEDS ORDERED: BENZONATATE 100MG CAPSULE PO PRN (08:45)
[2019-04-27] MEDS ORDERED: IPRATROPIUM/ALBUTEROL 0.5-3(2.5)MG/3ML NEB HHN PRN (08:45)
[2019-04-27] MEDS ORDERED: ACETAMINOPHEN 325MG TABLET PO PRN (08:45)
[2019-04-27] MEDS ORDERED: DIATR MEGLU/DIATRIZOATE SOLN 30ML PO SCH ×2 (10:00)
[2019-04-27] MEDS: NIFEDIPINE XL 60MG TAB PO SCH (10:37)
[2019-04-27] MEDS ORDERED: DIATR MEGLU/DIATRIZOATE SOLN 30ML ONE (11:24)
[2019-04-27] MEDS: HYDROCODONE/ACETAMINOPHEN 5/325MG TABLET PO PRN (13:23)
[2019-04-27] MEDS ORDERED: CARVEDILOL 6.25 MG TABLET PO ONE (13:45)
[2019-04-27] MEDS: HYDRALAZINE HCL 50MG TABLET PO SCH ×2 (14:16→21:43)
[2019-04-27] MEDS: ONDANSETRON HCL 4MG/2ML INJ IV PRN (15:57)
[2019-04-27 17:30] VITALS: BP_SYST 173; BP_SYST 175; BP_DIAS 71
[2019-04-27 20:00] VITALS: BP 144/64
[2019-04-27] MEDS: DIPHENHYDRAMINE 50MG/ML VIAL IV PRN (20:47)
[2019-04-27] MEDS: MORPHINE SULFATE 2 MG/ML CPJ (NOT FOR IM USE) IV PRN (20:47)
[2019-04-28] VITALS: BP 141/82
[2019-04-28] MEDS: MORPHINE SULFATE 2 MG/ML CPJ (NOT FOR IM USE) IV PRN ×2 (02:27→08:59)
[2019-04-28] MEDS: IPRATROPIUM/ALBUTEROL 0.5-3(2.5)MG/3ML NEB HHN SCH (02:32)
[2019-04-28 04:00] VITALS: BP 142/87
[2019-04-28] MEDS: DIPHENHYDRAMINE 50MG/ML VIAL IV PRN ×3 (04:30→20:51)
[2019-04-28] MEDS: HYDRALAZINE HCL 50MG TABLET PO SCH ×3 (06:37→20:13)
[2019-04-28 08:00] VITALS: BP 145/77
[2019-04-28] MEDS: ASPIRIN 81MG TABLET PO SCH (08:58)
[2019-04-28] MEDS: NIFEDIPINE XL 60MG TAB PO SCH (08:58)
[2019-04-28] MEDS ORDERED: ASPIRIN 81MG TABLET PO SCH (09:00)
[2019-04-28] MEDS: ONDANSETRON HCL 4MG/2ML INJ IV PRN (10:08)
[2019-04-28 12:00] VITALS: BP 141/80
[2019-04-28] MEDS: HYDROCODONE/ACETAMINOPHEN 5/325MG TABLET PO PRN (14:20)
[2019-04-28 14:24] LABS: BASOPHILS % 0.6 % (0.0-2.0); EOSINOPHILS % 3.9 % (0.0-5.0); HEMATOCRIT. 34.1 % (36.0-48.0); HEMOGLOBIN. 11.3 g/dL (12.0-16.0); LYMPHOCYTES % 34.7 % (20.0-50.0); MEAN CORPUSCULAR HEMOGLOBIN 30.3 pg (28.0-32.0); MEAN CORPUSCULAR VOLUME 91.3 fL (81.0-99.0); MEAN PLATELET VOLUME 7.6 fl (7.4-10.4); MONOCYTES % 8.5 % (2.0-8.0); NEUTROPHILS % 52.3 % (40.0-76.0); PLATELET 248 x1000/uL (130-400); RED BLOOD CELL COUNT 3.74 mill/uL (4.2-5.4); RED CELL DISTRIBUTION WIDTH 16.9 % (11.6-14.6)
[2019-04-28 16:00] VITALS: BP 138/73
[2019-04-28 20:00] VITALS: BP 139/77
[2019-04-28] MEDS: GUAIFENESIN 600MG ER TABLET PO SCH (20:13)
[2019-04-28] MEDS: GABAPENTIN 300MG CAPSULE PO SCH (20:13)
[2019-04-29] VITALS: BP 109/57
[2019-04-29 04:00] VITALS: BP 139/93
[2019-04-29] MEDS: DIPHENHYDRAMINE 50MG/ML VIAL IV PRN ×3 (04:44→21:21)
[2019-04-29] MEDS: GABAPENTIN 300MG CAPSULE PO SCH ×3 (05:27→21:22)
[2019-04-29] MEDS: HYDRALAZINE HCL 50MG TABLET PO SCH ×3 (05:27→21:22)
[2019-04-29 08:00] VITALS: BP 123/85
[2019-04-29] MEDS: IPRATROPIUM/ALBUTEROL 0.5-3(2.5)MG/3ML NEB HHN SCH ×3 (08:30→20:39)
[2019-04-29] MEDS: GUAIFENESIN 600MG ER TABLET PO SCH ×2 (08:57→21:22)
[2019-04-29] MEDS: ASPIRIN 81MG TABLET PO SCH (08:57)
[2019-04-29] MEDS: NIFEDIPINE XL 60MG TAB PO SCH (09:00)
[2019-04-29] MEDS: HYDROCODONE/ACETAMINOPHEN 5/325MG TABLET PO PRN ×2 (09:07→21:21)
[2019-04-29 11:17] LABS: BASOPHILS % 1.1 % (0.0-2.0); EOSINOPHILS % 8.7 % (0.0-5.0); HEMATOCRIT. 34.3 % (36.0-48.0); HEMOGLOBIN. 11.2 g/dL (12.0-16.0); LYMPHOCYTES % 36.3 % (20.0-50.0); MEAN CORPUSCULAR HEMOGLOBIN 29.5 pg (28.0-32.0); MEAN CORPUSCULAR VOLUME 90.9 fL (81.0-99.0); MEAN PLATELET VOLUME 7.5 fl (7.4-10.4); MONOCYTES % 6.7 % (2.0-8.0); NEUTROPHILS % 47.2 % (40.0-76.0); PLATELET 248 x1000/uL (130-400); RED BLOOD CELL COUNT 3.78 mill/uL (4.2-5.4); RED CELL DISTRIBUTION WIDTH 16.5 % (11.6-14.6)
[2019-04-29 12:00] VITALS: BP 159/92
[2019-04-29] MEDS: LORATADINE 10MG TABLET PO SCH (14:00)
[2019-04-29 16:00] VITALS: BP 136/96
[2019-04-29 20:00] VITALS: BP 132/89
[2019-04-29] MEDS: FLUTICASONE PROPIONATE 50MCG/SPRAY BOTTLE BOTHNSTRLS SCH (21:22)
[2019-04-30] VITALS: BP 125/74
[2019-04-30] MEDS: IPRATROPIUM/ALBUTEROL 0.5-3(2.5)MG/3ML NEB HHN SCH ×2 (02:43→08:32)
[2019-04-30 04:00] VITALS: BP 100/59
[2019-04-30] MEDS: HYDRALAZINE HCL 50MG TABLET PO SCH ×2 (05:10→12:51)
[2019-04-30] MEDS: GABAPENTIN 300MG CAPSULE PO SCH ×2 (05:10→12:51)
[2019-04-30] MEDS: HYDROCODONE/ACETAMINOPHEN 5/325MG TABLET PO PRN ×2 (05:22→09:40)
[2019-04-30] MEDS: DIPHENHYDRAMINE 50MG/ML VIAL IV PRN ×2 (05:28→12:51)
[2019-04-30 06:26] LABS: BASOPHILS % 0.7 % (0.0-2.0); EOSINOPHILS % 6.6 % (0.0-5.0); HEMOGLOBIN. 10.6 g/dL (12.0-16.0); LYMPHOCYTES % 24.4 % (20.0-50.0); MEAN CORPUSCULAR HEMOGLOBIN 30.2 pg (28.0-32.0); MEAN CORPUSCULAR VOLUME 91.7 fL (81.0-99.0); MEAN PLATELET VOLUME 7.1 fl (7.4-10.4); MONOCYTES % 9.2 % (2.0-8.0); NEUTROPHILS % 59.1 % (40.0-76.0); PLATELET 185 x1000/uL (130-400); RED BLOOD CELL COUNT 3.49 mill/uL (4.2-5.4); RED CELL DISTRIBUTION WIDTH 16.6 % (11.6-14.6)
[2019-04-30 08:00] VITALS: BP 120/80
[2019-04-30] MEDS: NIFEDIPINE XL 60MG TAB PO SCH (09:23)
[2019-04-30] MEDS: GUAIFENESIN 600MG ER TABLET PO SCH (09:23)
[2019-04-30] MEDS: LORATADINE 10MG TABLET PO SCH (09:23)
[2019-04-30] MEDS: ASPIRIN 81MG TABLET PO SCH (09:23)
[2019-04-30] MEDS: FLUTICASONE PROPIONATE 50MCG/SPRAY BOTTLE BOTHNSTRLS SCH (09:32)
[2019-04-30 10:03] VITALS: BP 120/80
[2019-04-30 12:00] VITALS: BP 136/55
== END 2019-04-30 14:29 | disposition home or self-care (01) | DRG 391 ==
LOC: ER 15:44 → EDBEDREQDT 04-27 00:25 → EDBEDREQ 04-27 00:25 → EDBEDREQTM 04-27 00:25 → EDBEDREQ 04-27 02:18 → EDBEDREQTM 04-27 02:18 → ENRESERV 04-27 16:09 → ER 04-27 17:32 → 7WST 04-27 18:12
PROVIDERS: ADMIT Internal Medicine; ATTEND Internal Medicine
PROC: 5A1D70Z Performance of Urinary Filtration, Intermittent, Less than 6 Hours Per Day (ICD-10-PCS; principal; 2019-04-27)
PROC: 5A1D70Z Performance of Urinary Filtration, Intermittent, Less than 6 Hours Per Day (ICD-10-PCS; 2019-04-29)
DX: K52.9 Noninfective gastroenteritis and colitis, unspecified (principal); N18.6 End stage renal disease; J96.00 Acute respiratory failure, unspecified whether with hypoxia or hypercapnia; I13.2 Hypertensive heart and chronic kidney disease with heart failure and with stage 5 chronic kidney disease, or end stage renal disease; I69.351 Hemiplegia and hemiparesis following cerebral infarction affecting right dominant side; D63.8 Anemia in other chronic diseases classified elsewhere; J06.9 Acute upper respiratory infection, unspecified; I25.10 Atherosclerotic heart disease of native coronary artery without angina pectoris; I50.9 Heart failure, unspecified; J30.2 Other seasonal allergic rhinitis; N20.0 Calculus of kidney; K57.30 Diverticulosis of large intestine without perforation or abscess without bleeding; I77.811 Abdominal aortic ectasia; I70.0 Atherosclerosis of aorta; Z95.2 Presence of prosthetic heart valve; Z99.2 Dependence on renal dialysis; Z86.79 Personal history of other diseases of the circulatory system; Z95.1 Presence of aortocoronary bypass graft; Z76.5 Malingerer [conscious simulation]; Z88.6 Allergy status to analgesic agent; Z79.899 Other long term (current) drug therapy; Z79.82 Long term (current) use of aspirin
CPT/HCPCS: 36415; 71045; 74176; 80048; 80051; 80053; 80061; 83605; 83880; 84484; 85025; 87804; 93005; 94640; 97116; 99285; J0360; J1200; J2270; J2405; J7512; Q9963

== ENCOUNTER 2019-11-02 02:46 | Inpatient (IN) | payer MEDICARE, MEDICAID ==
[~2019-11-02] VITALS: Ht 160 cm; Wt 83.9 kg
[2019-11-02] MEDS ORDERED: ONDANSETRON HCL 4MG/2ML INJ IV STA (03:44)
[2019-11-02] MEDS ORDERED: MORPHINE SULFATE 4 MG/ML CPJ (NOT FOR IM USE) IV STA (03:44)
[2019-11-02] MEDS ORDERED: NITROGLYCERIN 0.4MG TABLET SL SL PRN ×2 (03:45→07:00)
[2019-11-02 04:29] LABS: BASOPHILS % 1.5 % (0.0-2.0); EOSINOPHILS % 8.6 % (0.0-5.0); HEMOGLOBIN. 10.6 g/dL (12.0-16.0); LYMPHOCYTES % 27.6 % (20.0-50.0); MEAN CORPUSCULAR HEMOGLOBIN 30.6 pg (28.0-32.0); MEAN PLATELET VOLUME 7.5 fl (7.4-10.4); MONOCYTES % 8.2 % (2.0-8.0); NEUTROPHILS % 54.1 % (40.0-76.0); PLATELET 150 x1000/uL (130-400); RED BLOOD CELL COUNT 3.47 mill/uL (4.2-5.4); RED CELL DISTRIBUTION WIDTH 16.2 % (11.6-14.6)
[2019-11-02 04:30] LABS: CHLORIDE 104 mEq/L (98-107)
[2019-11-02 04:40] LABS: PARTIAL THROMBOPLASTIN TIME 28.1 sec (23.4-31.0); PROTHROMBIN TIME 10.4 sec (9.6-11.0)
[2019-11-02] MEDS ORDERED: IPRATROPIUM/ALBUTEROL 0.5-3(2.5)MG/3ML NEB ORI PRN (07:00)
[2019-11-02] MEDS ORDERED: CLONIDINE 0.1MG TABLET PO PRN (07:00)
[2019-11-02] MEDS ORDERED: GUAIFENESIN 200MG/10ML SUGAR FREE UDC PO PRN (07:00)
[2019-11-02] MEDS ORDERED: ENOXAPARIN 40MG/0.4ML SYR SUBCUT SCH (07:00)
[2019-11-02] MEDS ORDERED: DOCUSATE SODIUM 100MG CAPSULE PO PRN (07:00)
[2019-11-02] MEDS ORDERED: MAGNESIUM/ALUMINUM HYDROXIDE/SIMETHICONE 30ML UDC PO PRN (07:00)
[2019-11-02] MEDS ORDERED: ACETAMINOPHEN 325MG TABLET PO PRN ×2 (07:00)
[2019-11-02] MEDS ORDERED: ONDANSETRON HCL 4MG/2ML INJ IV PRN (07:00)
[2019-11-02 09:00] VITALS: BP 160/56
[2019-11-02 09:18] VITALS: BP 160/56
[2019-11-02] MEDS ORDERED: SUCR1TAB30 PO (09:36)
[2019-11-02] MEDS: ASPIRIN 325MG EC TABLET PO SCH (09:57)
[2019-11-02] MEDS: TRAMADOL 50MG TABLET PO PRN (09:57)
[2019-11-02] MEDS: ENOXAPARIN 30MG/0.3ML SYR SUBCUT SCH (09:57)
[2019-11-02] MEDS: FAMOTIDINE 20MG TABLET PO SCH (09:57)
[2019-11-02] MEDS: METOPROLOL TARTRATE 25MG TABLET PO SCH ×2 (09:58→21:00)
[2019-11-02] MEDS: AMLODIPINE 10MG TABLET PO SCH (09:58)
[2019-11-02] MEDS: DIPHENHYDRAMINE 50MG/ML VIAL IV PRN ×2 (11:41→17:53)
[2019-11-02 12:00] VITALS: BP 168/86
[2019-11-02] MEDS: SEVELAMER CARBONATE 800 MG TABLET PO SCH ×2 (13:20→17:02)
[2019-11-02] MEDS: HYDRALAZINE HCL 50MG TABLET PO SCH ×2 (13:32→21:30)
[2019-11-02 15:04] LABS: *AMPHETAMINES SCREEN URINE NEGATIVE (NEGATIVE); *BARBITURATES SCREEN URINE NEGATIVE (NEGATIVE); *BENZODIAZEPINES SCREEN URINE NEGATIVE (NEGATIVE); *COCAINE SCREEN URINE NEGATIVE (NEGATIVE)
[2019-11-02 15:05] LABS: CANNABINOID URINE SCREEN NEGATIVE (NEGATIVE); OPIATES URINE SCREEN PRESUMTIVE POSITIVE (NEGATIVE); PHENCYCLIDINE URINE SCREEN NEGATIVE (NEGATIVE)
[2019-11-02 15:06] LABS: METHADONE URINE SCREEN NEGATIVE (NEGATIVE)
[2019-11-02 15:33] LABS: CREATINE KINASE MB FRACTION 1.2 ng/mL (0.5-3.6)
[2019-11-02 16:00] VITALS: BP 131/77
[2019-11-02 20:34] VITALS: BP 113/69
[2019-11-02] MEDS ORDERED: ZOLPIDEM TARTRATE 5MG TABLET PO PRN (21:00)
[2019-11-02] MEDS: ATORVASTATIN CALCIUM 40MG TABLET PO SCH (21:26)
[2019-11-02 23:49] VITALS: BP 103/50
[2019-11-03] MEDS: DIPHENHYDRAMINE 50MG/ML VIAL IV PRN ×4 (00:40→22:02)
[2019-11-03 00:47] LABS: CREATINE KINASE MB FRACTION 1.4 ng/mL (0.5-3.6)
[2019-11-03 04:13] VITALS: BP 125/75
[2019-11-03] MEDS: HYDRALAZINE HCL 50MG TABLET PO SCH ×3 (05:30→22:02)
[2019-11-03 07:15] LABS: EOSINOPHILS % 8.2 % (0.0-5.0); HEMATOCRIT. 33.6 % (36.0-48.0); HEMOGLOBIN. 11.2 g/dL (12.0-16.0); LYMPHOCYTES % 22.1 % (20.0-50.0); MEAN CORPUSCULAR HEMOGLOBIN 30.5 pg (28.0-32.0); MEAN CORPUSCULAR VOLUME 91.4 fL (81.0-99.0); MEAN PLATELET VOLUME 7.6 fl (7.4-10.4); MONOCYTES % 6.9 % (2.0-8.0); NEUTROPHILS % 61.8 % (40.0-76.0); PLATELET 147 x1000/uL (130-400); RED BLOOD CELL COUNT 3.68 mill/uL (4.2-5.4); RED CELL DISTRIBUTION WIDTH 16.2 % (11.6-14.6)
[2019-11-03 08:00] VITALS: BP 100/53
[2019-11-03] MEDS: METOPROLOL TARTRATE 25MG TABLET PO SCH ×2 (08:58→20:11)
[2019-11-03] MEDS: AMLODIPINE 10MG TABLET PO SCH (08:59)
[2019-11-03] MEDS: ASPIRIN 325MG EC TABLET PO SCH (09:11)
[2019-11-03] MEDS: ENOXAPARIN 30MG/0.3ML SYR SUBCUT SCH (09:11)
[2019-11-03] MEDS: FAMOTIDINE 20MG TABLET PO SCH (09:11)
[2019-11-03] MEDS: SEVELAMER CARBONATE 800 MG TABLET PO SCH ×3 (09:11→17:56)
[2019-11-03] MEDS ORDERED: CLOPIDOGREL 75MG TABLET PO ONE (11:00)
[2019-11-03 12:00] VITALS: BP 107/75
[2019-11-03 16:00] VITALS: BP 162/87
[2019-11-03 20:00] VITALS: BP 166/90
[2019-11-03] MEDS: ATORVASTATIN CALCIUM 40MG TABLET PO SCH (20:11)
[2019-11-03] MEDS: TRAMADOL 50MG TABLET PO PRN (20:11)
[2019-11-04] VITALS (7 sets, daily range): BP systolic 117–172; BP diastolic 60–88
[2019-11-04] MEDS: DIPHENHYDRAMINE 50MG/ML VIAL IV PRN ×3 (04:37→20:49)
[2019-11-04] MEDS: HYDRALAZINE HCL 50MG TABLET PO SCH ×3 (06:06→21:53)
[2019-11-04 06:55] LABS: EOSINOPHILS % 9.7 % (0.0-5.0); HEMATOCRIT. 32.9 % (36.0-48.0); HEMOGLOBIN. 10.8 g/dL (12.0-16.0); MEAN CORPUSCULAR HEMOGLOBIN 30.1 pg (28.0-32.0); MEAN CORPUSCULAR VOLUME 91.5 fL (81.0-99.0); MEAN PLATELET VOLUME 7.3 fl (7.4-10.4); MONOCYTES % 8.1 % (2.0-8.0); NEUTROPHILS % 43.2 % (40.0-76.0); PLATELET 158 x1000/uL (130-400)
[2019-11-04] MEDS: METOPROLOL TARTRATE 25MG TABLET PO SCH ×2 (08:17→20:49)
[2019-11-04] MEDS: SEVELAMER CARBONATE 800 MG TABLET PO SCH ×3 (08:17→17:03)
[2019-11-04] MEDS: ASPIRIN 325MG EC TABLET PO SCH (08:17)
[2019-11-04] MEDS: CLOPIDOGREL 75MG TABLET PO SCH (08:17)
[2019-11-04] MEDS: AMLODIPINE 10MG TABLET PO SCH (08:17)
[2019-11-04] MEDS: FAMOTIDINE 20MG TABLET PO SCH (08:17)
[2019-11-04] MEDS: ENOXAPARIN 30MG/0.3ML SYR SUBCUT SCH (08:18)
[2019-11-04] MEDS ORDERED: DIPHENHYDRAMINE 50MG/ML VIAL IV NR (11:15)
[2019-11-04] MEDS: TRAMADOL 50MG TABLET PO PRN (17:03)
[2019-11-04] MEDS: ATORVASTATIN CALCIUM 40MG TABLET PO SCH (20:49)
[2019-11-05] VITALS: BP 112/58
[2019-11-05 04:00] VITALS: BP 151/77
[2019-11-05] MEDS: DIPHENHYDRAMINE 50MG/ML VIAL IV PRN (04:36)
[2019-11-05] MEDS: HYDRALAZINE HCL 50MG TABLET PO SCH (06:06)
[2019-11-05 06:50] LABS: BASOPHILS % 0.8 % (0.0-2.0); EOSINOPHILS % 7.4 % (0.0-5.0); HEMATOCRIT. 34.3 % (36.0-48.0); HEMOGLOBIN. 11.3 g/dL (12.0-16.0); LYMPHOCYTES % 25.4 % (20.0-50.0); MEAN CORPUSCULAR HEMOGLOBIN 30.1 pg (28.0-32.0); MEAN PLATELET VOLUME 7.5 fl (7.4-10.4); MONOCYTES % 8.6 % (2.0-8.0); NEUTROPHILS % 57.8 % (40.0-76.0); PLATELET 157 x1000/uL (130-400); RED BLOOD CELL COUNT 3.77 mill/uL (4.2-5.4)
[2019-11-05 08:00] VITALS: BP 100/47
[2019-11-05] MEDS: AMLODIPINE 10MG TABLET PO SCH (08:31)
[2019-11-05] MEDS: METOPROLOL TARTRATE 25MG TABLET PO SCH (08:32)
[2019-11-05] MEDS: CLOPIDOGREL 75MG TABLET PO SCH (08:34)
[2019-11-05] MEDS: FAMOTIDINE 20MG TABLET PO SCH (08:34)
[2019-11-05] MEDS: SEVELAMER CARBONATE 800 MG TABLET PO SCH (08:34)
[2019-11-05] MEDS: ASPIRIN 325MG EC TABLET PO SCH (08:34)
[2019-11-05] MEDS: ENOXAPARIN 30MG/0.3ML SYR SUBCUT SCH (08:35)
[2019-11-05 10:06] VITALS: BP 100/47
[2019-11-05 12:00] VITALS: BP 157/91
== END 2019-11-05 11:40 | disposition home or self-care (01) | DRG 280 ==
LOC: ER 02:46 → 6WST 05:31 → SUPCPDRO 06:57 → ENRESERV 08:13
PROVIDERS: ADMIT Internal Medicine; ATTEND Internal Medicine
PROC: 5A1D70Z Performance of Urinary Filtration, Intermittent, Less than 6 Hours Per Day (ICD-10-PCS; principal; 2019-11-02)
PROC: 5A1D70Z Performance of Urinary Filtration, Intermittent, Less than 6 Hours Per Day (ICD-10-PCS; 2019-11-04)
DX: I21.4 Non-ST elevation (NSTEMI) myocardial infarction (principal); N18.6 End stage renal disease; I13.2 Hypertensive heart and chronic kidney disease with heart failure and with stage 5 chronic kidney disease, or end stage renal disease; I69.351 Hemiplegia and hemiparesis following cerebral infarction affecting right dominant side; D63.8 Anemia in other chronic diseases classified elsewhere; E11.22 Type 2 diabetes mellitus with diabetic chronic kidney disease; E66.9 Obesity, unspecified; I25.10 Atherosclerotic heart disease of native coronary artery without angina pectoris; I50.9 Heart failure, unspecified; M94.0 Chondrocostal junction syndrome [Tietze]; I71.9 Aortic aneurysm of unspecified site, without rupture; Z88.6 Allergy status to analgesic agent; Z91.041 Radiographic dye allergy status; Z79.82 Long term (current) use of aspirin; Z79.899 Other long term (current) drug therapy; Z95.1 Presence of aortocoronary bypass graft; Z95.2 Presence of prosthetic heart valve; Z99.2 Dependence on renal dialysis; Z68.32 Body mass index [BMI] 32.0-32.9, adult
CPT/HCPCS: 36415; 71045; 80048; 80053; 80061; 80305; 82550; 82553; 83036; 83880; 84484; 85025; 86850; 86870; 86900; 93005; 93306; 93970; 99291; J1200; J1650; J2270; J2405

== ENCOUNTER 2020-01-22 11:53 | Emergency (ER) | payer MEDICARE, MEDICAID ==
[~2020-01-22] VITALS: Ht 175.3 cm; Wt 82.0 kg
[~2020-01-22 11:53] MED LIST changes: +SUCR1TAB30 PO
[2020-01-22] MEDS ORDERED: ACETAMINOPHEN 325MG TABLET PO ONE (13:00)
[2020-01-22] MEDS ORDERED: ONDANSETRON HCL 4MG/2ML INJ IV STA (13:05)
[2020-01-22] MEDS ORDERED: MORPHINE SULFATE 4 MG/ML CPJ (NOT FOR IM USE) IV STA (13:05)
[2020-01-22] MEDS ORDERED: SODIUM CHLORIDE 0.9% 1,000 ML IV ONE (13:15)
[2020-01-22 14:30] LABS: EOSINOPHILS % 5.3 % (0.0-5.0); HEMATOCRIT. 32.1 % (36.0-48.0); HEMOGLOBIN. 10.6 g/dL (12.0-16.0); LYMPHOCYTES % 23.2 % (20.0-50.0); MEAN CORPUSCULAR HEMOGLOBIN 31.7 pg (28.0-32.0); MEAN CORPUSCULAR VOLUME 95.6 fL (81.0-99.0); MONOCYTES % 7.4 % (2.0-8.0); NEUTROPHILS % 63.1 % (40.0-76.0); RED BLOOD CELL COUNT 3.36 mill/uL (4.2-5.4); RED CELL DISTRIBUTION WIDTH 16.1 % (11.6-14.6)
[2020-01-22 14:34] LABS: CHLORIDE 105 mEq/L (98-107)
[2020-01-22 16:25] LABS: MEAN PLATELET VOLUME 7.7 fl (7.4-10.4); PLATELET 157 x1000/uL (130-400); PLATELET ESTIMATE NORMAL
[2020-01-22] MEDS ORDERED: METHYLPREDNISOLONE SOD SUCC 125 MG/2 ML VIAL IV ONE (17:30)
[2020-01-22] MEDS ORDERED: DIPHENHYDRAMINE 50MG/ML VIAL IV ONE (17:30)
[2020-01-22 18:45] LABS: CLARITY URINE CLEAR (CLEAR); COLOR URINE YELLOW (YELLOW); KETONES URINE NEGATIVE (NEGATIVE); LEUKOCYTE ESTERASE URINE TRACE (NEGATIVE); NITRITE URINE NEGATIVE (NEGATIVE); OCCULT BLOOD URINE NEGATIVE (NEGATIVE); PROTEIN URINE 1+ (NEGATIVE); SPECIFIC GRAVITY URINE 1.013 (1.005-1.030); UROBILINOGEN URINE 0.2 E.U./dL (0.2-1.0)
[2020-01-22] MEDS ORDERED: ONDANSETRON HCL 4MG/2ML INJ IV ONE (19:30)
[2020-01-22] MEDS ORDERED: CLONIDINE 0.1MG TABLET PO ONE (19:30)
[2020-01-22] MEDS ORDERED: MORPHINE SULFATE 4 MG/ML CPJ (NOT FOR IM USE) IV ONE (19:30)
[2020-01-23] MEDS ORDERED: METHYLPREDNISOLONE SOD SUCC 125 MG/2 ML VIAL IV ONE
[2020-01-23] MEDS ORDERED: DIPHENHYDRAMINE 50MG/ML VIAL IV ONE
[2020-01-23 01:45] VITALS: BP 157/80
[2020-01-23] MEDS ORDERED: HYDROCODONE/ACETAMINOPHEN 5/325MG TABLET PO ONE (01:45)
[2020-01-23] MEDS ORDERED: METHOCARBAMOL 500MG TABLET PO ONE (01:45)
== END 2020-01-23 03:00 | disposition home or self-care (01) ==
LOC: ER 11:53
DX: M54.5 Low back pain (principal); I12.0 Hypertensive chronic kidney disease with stage 5 chronic kidney disease or end stage renal disease; E11.22 Type 2 diabetes mellitus with diabetic chronic kidney disease; N18.6 End stage renal disease; Z99.2 Dependence on renal dialysis; Z86.73 Personal history of transient ischemic attack (TIA), and cerebral infarction without residual deficits; Z88.6 Allergy status to analgesic agent; Z91.041 Radiographic dye allergy status; Z79.899 Other long term (current) drug therapy; Z79.82 Long term (current) use of aspirin; Z98.890 Other specified postprocedural states
CPT/HCPCS: 36415; 71045; 74176; 80053; 81003; 83690; 83880; 84484; 85025; 87086; 93005; 96361; 96374; 96375; 96376; 99285; J1200; J2270; J2405; J2930; J7030

== ENCOUNTER 2020-03-18 02:26 | Emergency (ER) | payer MEDICARE, MEDICAID ==
[~2020-03-18] VITALS: Ht 167.6 cm; Wt 75.0 kg
[2020-03-18 02:51] LABS: HEMATOCRIT 31.7 % (36.0-48.0); HEMOGLOBIN 10.6 g/dL (12.0-16.0); MEAN CORPUSCULAR HEMOGLOBIN 30.6 pg (28.0-32.0); MEAN CORPUSCULAR VOLUME 91.2 fL (81.0-99.0); PLATELET 155 x1000/uL (130-400); RED BLOOD CELL COUNT 3.47 mill/uL (4.2-5.4); RED CELL DISTRIBUTION WIDTH 15.5 % (11.6-14.6)
[2020-03-18 02:59] LABS: CHLORIDE 102 mEq/L (98-107)
[2020-03-18] MEDS ORDERED: LABETALOL 5MG/ML SYR 20 MG/4 ML SYRINGE IV NR (04:00)
[2020-03-18] MEDS ORDERED: HYDRALAZINE HCL 100MG TABLET PO ONE (05:15)
[2020-03-18 05:20] VITALS: BP 189/85
== END 2020-03-18 05:30 | disposition home or self-care (01) ==
LOC: ER 02:26
DX: I12.0 Hypertensive chronic kidney disease with stage 5 chronic kidney disease or end stage renal disease (principal); N18.6 End stage renal disease; Z99.2 Dependence on renal dialysis; Z86.73 Personal history of transient ischemic attack (TIA), and cerebral infarction without residual deficits; Z79.899 Other long term (current) drug therapy; Z79.82 Long term (current) use of aspirin
CPT/HCPCS: 36415; 80053; 85027; 93005; 99284; J3490

== ENCOUNTER 2020-04-08 23:48 | Emergency (ER) | payer MEDICARE, MEDICAID ==
[~2020-04-08] VITALS: Ht 160 cm; Wt 82.0 kg
[2020-04-09 00:57] LABS: HEMATOCRIT. 32.5 % (36.0-48.0); HEMOGLOBIN. 10.5 g/dL (12.0-16.0); MEAN CORPUSCULAR HEMOGLOBIN 29.6 pg (28.0-32.0); MEAN CORPUSCULAR VOLUME 91.3 fL (81.0-99.0); RED BLOOD CELL COUNT 3.56 mill/uL (4.2-5.4); RED CELL DISTRIBUTION WIDTH 16.1 % (11.6-14.6)
[2020-04-09 01:00] LABS: CHLORIDE 103 mEq/L (98-107)
[2020-04-09] MEDS ORDERED: MORPHINE SULFATE 4 MG/ML CPJ (NOT FOR IM USE) IV ONE (01:00)
[2020-04-09 02:40] LABS: PLATELET ESTIMATE NORMAL
[2020-04-09 02:41] LABS: MEAN PLATELET VOLUME 8.1 fl (7.4-10.4); PLATELET 188 x1000/uL (130-400)
[2020-04-09] MEDS ORDERED: CLONIDINE 0.2MG TABLET PO ONE (05:30)
[2020-04-09 05:45] LABS: CLARITY URINE CLEAR (CLEAR); COLOR URINE YELLOW (YELLOW); KETONES URINE NEGATIVE (NEGATIVE); LEUKOCYTE ESTERASE URINE TRACE (NEGATIVE); NITRITE URINE NEGATIVE (NEGATIVE); OCCULT BLOOD URINE NEGATIVE (NEGATIVE); PH URINE 8.5 (4.5-8.0); PROTEIN URINE 1+ (NEGATIVE); SPECIFIC GRAVITY URINE 1.012 (1.005-1.030)
[2020-04-09 06:00] VITALS: BP 189/89
== END 2020-04-09 06:38 | disposition home or self-care (01) ==
LOC: ER 23:48
DX: I11.0 Hypertensive heart disease with heart failure (principal); I50.9 Heart failure, unspecified; Z86.73 Personal history of transient ischemic attack (TIA), and cerebral infarction without residual deficits; Z79.899 Other long term (current) drug therapy; Z88.6 Allergy status to analgesic agent
CPT/HCPCS: 36415; 71045; 74176; 80053; 81003; 83690; 85025; 93005; 96374; 99285; J2270

== ENCOUNTER 2020-04-26 22:44 | Inpatient (IN) | payer MEDICARE, MEDICAID ==
[~2020-04-26] VITALS: Ht 160 cm; Wt 76.7 kg
[2020-04-26] MEDS ORDERED: MORPHINE SULFATE 4 MG/ML CPJ (NOT FOR IM USE) IV STA (23:18)
[2020-04-26] MEDS ORDERED: ONDANSETRON HCL 4MG/2ML INJ IV STA (23:18)
[2020-04-26] MEDS ORDERED: FUROSEMIDE 40MG/4ML VIAL IV ONE (23:30)
[2020-04-27 00:34] LABS: EOSINOPHILS % 6.7 % (0.0-5.0); HEMATOCRIT. 30.6 % (36.0-48.0); LYMPHOCYTES % 27.4 % (20.0-50.0); MEAN CORPUSCULAR HEMOGLOBIN 30.2 pg (28.0-32.0); MEAN CORPUSCULAR VOLUME 92.4 fL (81.0-99.0); MEAN PLATELET VOLUME 7.8 fl (7.4-10.4); MONOCYTES % 7.1 % (2.0-8.0); NEUTROPHILS % 57.8 % (40.0-76.0); PLATELET 158 x1000/uL (130-400); RED BLOOD CELL COUNT 3.31 mill/uL (4.2-5.4); RED CELL DISTRIBUTION WIDTH 16.6 % (11.6-14.6)
[2020-04-27 00:39] LABS: CHLORIDE 106 mEq/L (98-107)
[2020-04-27] MEDS ORDERED: HYDRALAZINE 20MG/ML VIAL IV ONE (00:45)
[2020-04-27] MEDS ORDERED: ASPIRIN 325MG EC TABLET PO ONE (01:00)
[2020-04-27 08:00] VITALS: BP 167/76
[2020-04-27] MEDS ORDERED: MORPHINE SULFATE 2 MG/ML CPJ (NOT FOR IM USE) IV PRN (08:00)
[2020-04-27] MEDS ORDERED: ONDANSETRON HCL 4MG/2ML INJ IV PRN (09:00)
[2020-04-27] MEDS ORDERED: ACETAMINOPHEN 325MG TABLET PO PRN (09:00)
[2020-04-27 09:17] VITALS: BP 167/76
[2020-04-27] MEDS: HYDRALAZINE HCL 100MG TABLET PO SCH ×3 (09:39→22:30)
[2020-04-27] MEDS: HYDROCODONE/ACETAMINOPHEN 5/325MG TABLET PO PRN ×2 (09:39→16:39)
[2020-04-27] MEDS: AMLODIPINE 10MG TABLET PO SCH (09:39)
[2020-04-27 12:00] VITALS: BP 130/64
[2020-04-27] MEDS ORDERED: ENOXAPARIN 30MG/0.3ML SYR SUBCUT SCH ×2 (12:00→16:00)
[2020-04-27] MEDS ORDERED: DIPHENHYDRAMINE 50MG/ML VIAL IV SCH (12:00)
[2020-04-27 16:00] VITALS: BP 120/78
[2020-04-27] MEDS ORDERED: IPRATROPIUM/ALBUTEROL 0.5-3(2.5)MG/3ML NEB HHN PRN (16:00)
[2020-04-27] MEDS ORDERED: CEFTRIAXONE 1 G PREMIX 50 ML IV SCH (16:00)
[2020-04-27] MEDS ORDERED: AZITHROMYCIN 500 MG TABLET PO NR (16:00)
[2020-04-27] MEDS: CEFTRIAXONE 1,000 MG in DEXTROSE 5% WATER 50 ML IV SCH (18:04)
[2020-04-27] MEDS: DIPHENHYDRAMINE 25MG CAPSULE PO PRN (18:36)
[2020-04-27 20:00] VITALS: BP 128/54
[2020-04-27] MEDS ORDERED: METOPROLOL TARTRATE 25MG TABLET PO SCH (21:00)
[2020-04-27] MEDS: HYDROCODONE/ACETAMINOPHEN 10/325MG TABLET PO PRN (22:30)
[2020-04-28] VITALS: BP 161/84
[2020-04-28 04:00] VITALS: BP 151/84
[2020-04-28] MEDS: HYDRALAZINE HCL 100MG TABLET PO SCH ×3 (05:39→21:47)
[2020-04-28 07:12] LABS: BASOPHILS % 0.6 % (0.0-2.0); EOSINOPHILS % 5.2 % (0.0-5.0); HEMATOCRIT. 29.3 % (36.0-48.0); HEMOGLOBIN. 9.6 g/dL (12.0-16.0); LYMPHOCYTES % 25.8 % (20.0-50.0); MEAN CORPUSCULAR VOLUME 91.6 fL (81.0-99.0); MEAN PLATELET VOLUME 7.8 fl (7.4-10.4); MONOCYTES % 8.6 % (2.0-8.0); NEUTROPHILS % 59.8 % (40.0-76.0); PLATELET 162 x1000/uL (130-400); RED CELL DISTRIBUTION WIDTH 16.6 % (11.6-14.6)
[2020-04-28 08:00] VITALS: BP 135/63
[2020-04-28] MEDS: AZITHROMYCIN 250 MG TABLET PO SCH (10:15)
[2020-04-28] MEDS: AMLODIPINE 10MG TABLET PO SCH (10:16)
[2020-04-28] MEDS: CARVEDILOL 6.25 MG TABLET PO SCH ×2 (10:19→20:33)
[2020-04-28] MEDS ORDERED: DIPHENHYDRAMINE 50MG/ML VIAL IV NR (10:45)
[2020-04-28 12:00] VITALS: BP 136/58
[2020-04-28] MEDS: HYDROCODONE/ACETAMINOPHEN 10/325MG TABLET PO PRN (14:31)
[2020-04-28 16:00] VITALS: BP 137/61
[2020-04-28] MEDS: DIPHENHYDRAMINE 25MG CAPSULE PO PRN (18:30)
[2020-04-28] MEDS: CEFTRIAXONE 1,000 MG in DEXTROSE 5% WATER 50 ML IV SCH (18:30)
[2020-04-28 20:00] VITALS: BP 114/81
[2020-04-28] MEDS ORDERED: PREDNISONE 20MG TABLET PO NR (20:00)
[2020-04-29] VITALS (8 sets, daily range): BP systolic 119–171; BP diastolic 70–85
[2020-04-29] MEDS: HYDROCODONE/ACETAMINOPHEN 10/325MG TABLET PO PRN ×4 (00:56→20:05)
[2020-04-29] MEDS ORDERED: PREDNISONE 20MG TABLET PO NR (02:00)
[2020-04-29] MEDS: CLONIDINE 0.1MG TABLET PO PRN (02:13)
[2020-04-29] MEDS: DIPHENHYDRAMINE 25MG CAPSULE PO PRN (02:13)
[2020-04-29] MEDS: HYDRALAZINE HCL 100MG TABLET PO SCH ×3 (05:44→21:45)
[2020-04-29] MEDS ORDERED: DIPHENHYDRAMINE 50MG/ML VIAL IV SCH ×2 (08:00→13:00)
[2020-04-29] MEDS ORDERED: PREDNISONE 20MG TABLET PO ONE (08:00)
[2020-04-29] MEDS: AZITHROMYCIN 250 MG TABLET PO SCH (08:18)
[2020-04-29] MEDS: CARVEDILOL 6.25 MG TABLET PO SCH (08:18)
[2020-04-29] MEDS: AMLODIPINE 10MG TABLET PO SCH (08:18)
[2020-04-29 08:47] LABS: CLARITY URINE CLOUDY (CLEAR); COLOR URINE YELLOW (YELLOW); KETONES URINE NEGATIVE (NEGATIVE); LEUKOCYTE ESTERASE URINE 1+ (NEGATIVE); NITRITE URINE NEGATIVE (NEGATIVE); OCCULT BLOOD URINE NEGATIVE (NEGATIVE); PH URINE 7.5 (4.5-8.0); PROTEIN URINE TRACE (NEGATIVE); SPECIFIC GRAVITY URINE 1.013 (1.005-1.030)
[2020-04-29] MEDS ORDERED: LIDOCAINE HCL 1% 20ML VIAL (Pyxis) INJ ONE (11:14)
[2020-04-29] MEDS ORDERED: SODIUM BICARBONATE 4% (2.4MEQ) 5ML VIAL IV ONE (11:14)
[2020-04-29] MEDS ORDERED: PREDNISONE 20MG TABLET PO SCH (11:30)
[2020-04-29] MEDS ORDERED: CARVEDILOL 6.25 MG TABLET PO SCH (13:00)
[2020-04-29] MEDS ORDERED: IOHEXOL-350 100 ML BOTTLE ONE (14:22)
[2020-04-29] MEDS: CEFTRIAXONE 1,000 MG in DEXTROSE 5% WATER 50 ML IV SCH (17:49)
[2020-04-29] MEDS: CARVEDILOL 12.5MG TABLET PO SCH (20:03)
[2020-04-30] VITALS: BP 129/78
[2020-04-30 04:00] VITALS: BP 184/85
[2020-04-30] MEDS: HYDROCODONE/ACETAMINOPHEN 10/325MG TABLET PO PRN ×2 (05:26→09:25)
[2020-04-30] MEDS: HYDRALAZINE HCL 100MG TABLET PO SCH ×2 (06:33→13:02)
[2020-04-30 08:12] VITALS: BP 156/69
[2020-04-30] MEDS ORDERED: HYDRALAZINE 20MG/ML VIAL IV PRN (08:30)
[2020-04-30] MEDS: CARVEDILOL 12.5MG TABLET PO SCH ×2 (08:39→19:55)
[2020-04-30] MEDS: AMLODIPINE 10MG TABLET PO SCH (08:39)
[2020-04-30] MEDS: AZITHROMYCIN 250 MG TABLET PO SCH (08:40)
[2020-04-30] MEDS ORDERED: ISOSORBIDE MONONITRATE 30MG TABLET SR 24HR PO SCH (09:00)
[2020-04-30 12:00] VITALS: BP 160/70
[2020-04-30] MEDS ORDERED: OXYCODONE HCL/ACETAMINOPHEN 5/325MG TABLET PO PRN (13:00)
[2020-04-30] MEDS ORDERED: DIPHENHYDRAMINE 50MG/ML VIAL IV NR (13:30)
[2020-04-30] MEDS ORDERED: ISOSORBIDE DINITRATE 10MG TABLET PO SCH (16:00)
[2020-04-30] MEDS: CEFTRIAXONE 1,000 MG in DEXTROSE 5% WATER 50 ML IV SCH (17:13)
[2020-04-30] MEDS ORDERED: LOSARTAN POTASSIUM 50 MG TABLET PO SCH (17:45)
[2020-04-30 17:58] VITALS: BP 154/71
[2020-04-30] MEDS: CLONIDINE 0.1MG TABLET PO PRN (19:55)
[2020-04-30 20:34] VITALS: BP 166/91
[2020-04-30] MEDS ORDERED: HYDR100T26 MT ×2 (21:01)
[2020-04-30] MEDS ORDERED: LOSA100T32 MT ×2 (21:01)
[2020-05-31] MEDS ORDERED: HYDR-4135 MT (09:14)
[2020-05-31] MEDS ORDERED: LOSA50TA3 PO ×2 (11:23)
[2020-05-31] MEDS ORDERED: AMLO10TA80 MT ×2 (11:23)
[2020-05-31] MEDS ORDERED: HYDR100T26 PO ×2 (11:23)
[2020-05-31] MEDS ORDERED: HYDR-4009 MT ×2 (11:52)
[2020-06-30] MEDS ORDERED: ASPI-1079 PO (09:33)
[2020-06-30] MEDS ORDERED: NIFE-32 MT (09:33)
[2020-06-30] MEDS ORDERED: HYDR-4135 MT (09:33)
[2020-06-30] MEDS ORDERED: LOSA50TA41 MT (09:33)
[2020-06-30] MEDS ORDERED: CALC667T2 MT (09:33)
== END 2020-04-30 21:25 | disposition home or self-care (01) | DRG 280 ==
LOC: ER 22:44 → 6WST 04-27 01:13 → ENRESERV 04-27 07:17
PROVIDERS: ADMIT Internal Medicine; ATTEND Internal Medicine
PROC: 02HV33Z Insertion of Infusion Device into Superior Vena Cava, Percutaneous Approach (ICD-10-PCS; principal; 2020-04-29)
PROC: B518ZZA Fluoroscopy of Superior Vena Cava, Guidance (ICD-10-PCS; 2020-04-29)
PROC: B548ZZA Ultrasonography of Superior Vena Cava, Guidance (ICD-10-PCS; 2020-04-29)
DX: I13.2 Hypertensive heart and chronic kidney disease with heart failure and with stage 5 chronic kidney disease, or end stage renal disease (principal); I21.A1 Myocardial infarction type 2; N18.6 End stage renal disease; I50.33 Acute on chronic diastolic (congestive) heart failure; I71.01 Dissection of thoracic aorta; I71.02 Dissection of abdominal aorta; J18.9 Pneumonia, unspecified organism; E44.1 Mild protein-calorie malnutrition; N39.0 Urinary tract infection, site not specified; I69.351 Hemiplegia and hemiparesis following cerebral infarction affecting right dominant side; D63.8 Anemia in other chronic diseases classified elsewhere; E11.22 Type 2 diabetes mellitus with diabetic chronic kidney disease; I16.0 Hypertensive urgency; I35.0 Nonrheumatic aortic (valve) stenosis; I71.9 Aortic aneurysm of unspecified site, without rupture; Z20.822 Contact with and (suspected) exposure to COVID-19; E66.9 Obesity, unspecified; I25.10 Atherosclerotic heart disease of native coronary artery without angina pectoris; Z88.6 Allergy status to analgesic agent; Z99.2 Dependence on renal dialysis; Z91.041 Radiographic dye allergy status; Z79.82 Long term (current) use of aspirin; Z79.899 Other long term (current) drug therapy; Z95.5 Presence of coronary angioplasty implant and graft; Z95.2 Presence of prosthetic heart valve; Z68.29 Body mass index [BMI] 29.0-29.9, adult; I25.2 Old myocardial infarction
CPT/HCPCS: 36415; 36573; 71045; 71275; 74174; 74176; 80048; 80053; 81003; 83880; 84484; 85025; 87426; 93005; 93306; 96374; 99291; C1725; J0360; J0696; J1200; J1940; J2270; J2405; J3490; J7060; J7512; Q0163; Q9967

== ENCOUNTER 2020-08-12 00:21 | Inpatient (IN) | payer MEDICARE, MEDICAID ==
[~2020-08-12] VITALS: Ht 160 cm; Wt 75.3 kg
[~2020-08-12 00:21] MED LIST changes: -AMLO10TA80 PO; +ASPI-1079 PO; -ASPI-1497 PO; -B50 MT; +CALC667T2 MT; -COR12 PO; -DOCU-138 MT; +HYDR-4135 MT; -HYDR-4135 PO; +LOSA50TA41 MT; -METO1TAB40 PO; +NIFE-32 MT; -SUCR1TAB30 PO
[2020-08-12] MEDS: NITROGLYCERIN 0.4MG TABLET SL SL PRN (01:23)
[2020-08-12 01:26] LABS: BASOPHILS % 0.9 % (0.0-2.0); EOSINOPHILS % 8.4 % (0.0-5.0); HEMATOCRIT. 32.9 % (36.0-48.0); HEMOGLOBIN. 10.9 g/dL (12.0-16.0); LYMPHOCYTES % 22.1 % (20.0-50.0); MEAN CORPUSCULAR HEMOGLOBIN 30.3 pg (28.0-32.0); MEAN CORPUSCULAR VOLUME 91.3 fL (81.0-99.0); MEAN PLATELET VOLUME 7.6 fl (7.4-10.4); MONOCYTES % 7.9 % (2.0-8.0); NEUTROPHILS % 60.7 % (40.0-76.0); PLATELET 176 x1000/uL (130-400); RED BLOOD CELL COUNT 3.61 mill/uL (4.2-5.4); RED CELL DISTRIBUTION WIDTH 15.3 % (11.6-14.6)
[2020-08-12 01:33] LABS: CHLORIDE 105 mEq/L (98-107)
[2020-08-12 01:38] LABS: PARTIAL THROMBOPLASTIN TIME 22.4 sec (23.4-31.0); PROTHROMBIN TIME 10.8 sec (9.6-11.0)
[2020-08-12] MEDS ORDERED: CLONIDINE 0.2MG TABLET PO ONE (03:00)
[2020-08-12] MEDS ORDERED: MORPHINE SULFATE 4 MG/ML CPJ (NOT FOR IM USE) IV STA (03:02)
[2020-08-12] MEDS ORDERED: ONDANSETRON HCL 4MG/2ML INJ IV STA (03:02)
[2020-08-12] MEDS ORDERED: ACETAMINOPHEN 325MG TABLET PO PRN (09:00)
[2020-08-12] MEDS ORDERED: ONDANSETRON HCL 4MG/2ML INJ IV PRN (09:00)
[2020-08-12] MEDS: HYDROCODONE/ACETAMINOPHEN 10/325MG TABLET PO PRN ×2 (09:50→17:26)
[2020-08-12 10:00] VITALS: BP 136/56
[2020-08-12] MEDS: NIFEDIPINE XL 60MG TAB PO SCH (11:58)
[2020-08-12 12:00] VITALS: BP 148/59
[2020-08-12] MEDS ORDERED: COR12 PO (12:03)
[2020-08-12 16:00] VITALS: BP 167/73
[2020-08-12 17:13] LABS: HEPATITIS B SURFACE ANTIGEN NEGATIVE
[2020-08-12 17:43] LABS: HEPATITIS A AB IGM NEGATIVE (NEGATIVE)
[2020-08-12 20:00] VITALS: BP 159/86
[2020-08-12] MEDS ORDERED: DIPHENHYDRAMINE 50MG/ML VIAL IV NR (20:00)
[2020-08-13] VITALS: BP 155/82
[2020-08-13] MEDS: HYDROCODONE/ACETAMINOPHEN 10/325MG TABLET PO PRN ×3 (02:51→23:52)
[2020-08-13] MEDS: NITROGLYCERIN 0.4MG TABLET SL SL PRN (02:52)
[2020-08-13 04:00] VITALS: BP 130/64
[2020-08-13 08:00] VITALS: BP 118/55
[2020-08-13] MEDS: NIFEDIPINE XL 60MG TAB PO SCH (09:28)
[2020-08-13] MEDS: PANTOPRAZOLE 40MG DR TABLET PO SCH (10:23)
[2020-08-13] MEDS: DIPHENHYDRAMINE 25MG CAPSULE PO PRN ×2 (10:23→17:30)
[2020-08-13] MEDS: ASPIRIN 81MG TABLET PO SCH (10:23)
[2020-08-13 12:00] VITALS: BP 138/52
[2020-08-13] MEDS: ISOSORBIDE MONONITRATE 30MG TABLET SR 24HR PO SCH (12:21)
[2020-08-13 16:00] VITALS: BP 137/56
[2020-08-13] MEDS: DOCUSATE SODIUM 100MG CAPSULE PO SCH (17:31)
[2020-08-13 20:00] VITALS: BP 180/85
[2020-08-13 20:40] LABS: CHLORIDE 107 mEq/L (98-107)
[2020-08-13 20:41] LABS: BASOPHILS % 0.9 % (0.0-2.0); EOSINOPHILS % 9.1 % (0.0-5.0); HEMATOCRIT. 33.5 % (36.0-48.0); HEMOGLOBIN. 11.2 g/dL (12.0-16.0); LYMPHOCYTES % 31.1 % (20.0-50.0); MEAN CORPUSCULAR HEMOGLOBIN 30.5 pg (28.0-32.0); MEAN CORPUSCULAR VOLUME 91.3 fL (81.0-99.0); MEAN PLATELET VOLUME 8.4 fl (7.4-10.4); MONOCYTES % 10.3 % (2.0-8.0); NEUTROPHILS % 48.6 % (40.0-76.0); PLATELET 148 x1000/uL (130-400); RED BLOOD CELL COUNT 3.67 mill/uL (4.2-5.4); RED CELL DISTRIBUTION WIDTH 15.4 % (11.6-14.6)
[2020-08-13] MEDS: CLONIDINE 0.1MG TABLET PO PRN (23:55)
[2020-08-14] VITALS (7 sets, daily range): BP systolic 126–176; BP diastolic 50–94
[2020-08-14] MEDS: HYDROCODONE/ACETAMINOPHEN 10/325MG TABLET PO PRN ×4 (05:29→20:34)
[2020-08-14] MEDS: ASPIRIN 81MG TABLET PO SCH (08:11)
[2020-08-14] MEDS: DIPHENHYDRAMINE 25MG CAPSULE PO PRN ×2 (08:11→20:34)
[2020-08-14] MEDS: PANTOPRAZOLE 40MG DR TABLET PO SCH (08:11)
[2020-08-14] MEDS: DOCUSATE SODIUM 100MG CAPSULE PO SCH ×2 (08:11→16:14)
[2020-08-14] MEDS: NIFEDIPINE XL 60MG TAB PO SCH (08:12)
[2020-08-14] MEDS: ISOSORBIDE MONONITRATE 30MG TABLET SR 24HR PO SCH (08:12)
[2020-08-14] MEDS: CARVEDILOL 6.25 MG TABLET PO SCH ×2 (09:30→20:33)
[2020-08-14] MEDS: HYDRALAZINE HCL 25MG TABLET PO SCH ×2 (09:30→17:12)
[2020-08-14] MEDS ORDERED: MORPHINE SULFATE 2 MG/ML CPJ (NOT FOR IM USE) IV NR ×2 (10:30→23:15)
[2020-08-14] MEDS ORDERED: DIPHENHYDRAMINE 50MG/ML VIAL IV NR (14:15)
[2020-08-14] MEDS ORDERED: HEPARIN SODIUM 1,000 UNIT/1ML VIAL IV ONE (15:15)
[2020-08-14] MEDS: CLONIDINE 0.1MG TABLET PO PRN (23:08)
[2020-08-15] MEDS: HYDRALAZINE HCL 25MG TABLET PO SCH ×3 (02:32→17:30)
[2020-08-15 04:00] VITALS: BP 112/54
[2020-08-15] MEDS: FAMOTIDINE 20MG TABLET PO SCH (06:36)
[2020-08-15] MEDS: ASPIRIN 81MG TABLET PO SCH (08:22)
[2020-08-15] MEDS: NIFEDIPINE XL 60MG TAB PO SCH (08:23)
[2020-08-15] MEDS: CARVEDILOL 6.25 MG TABLET PO SCH ×2 (08:24→21:00)
[2020-08-15] MEDS: DOCUSATE SODIUM 100MG CAPSULE PO SCH ×2 (08:24→18:51)
[2020-08-15] MEDS: ISOSORBIDE MONONITRATE 60MG TABLET SR 24HR PO SCH (08:24)
[2020-08-15 08:25] VITALS: BP 144/75
[2020-08-15] MEDS: HYDROCODONE/ACETAMINOPHEN 10/325MG TABLET PO PRN (08:27)
[2020-08-15 12:13] VITALS: BP 91/58
[2020-08-15 15:54] VITALS: BP 90/47
[2020-08-15 20:00] VITALS: BP 97/55
[2020-08-16] VITALS: BP 122/72
[2020-08-16] MEDS: HYDRALAZINE HCL 25MG TABLET PO SCH ×2 (01:30→08:38)
[2020-08-16 04:00] VITALS: BP 121/77
[2020-08-16] MEDS: HYDROCODONE/ACETAMINOPHEN 10/325MG TABLET PO PRN (04:44)
[2020-08-16] MEDS: FAMOTIDINE 20MG TABLET PO SCH (06:56)
[2020-08-16] MEDS: DOCUSATE SODIUM 100MG CAPSULE PO SCH (08:20)
[2020-08-16] MEDS: ASPIRIN 81MG TABLET PO SCH (08:21)
[2020-08-16] MEDS: NIFEDIPINE XL 60MG TAB PO SCH (08:38)
[2020-08-16] MEDS: ISOSORBIDE MONONITRATE 60MG TABLET SR 24HR PO SCH (08:38)
[2020-08-16] MEDS: CARVEDILOL 6.25 MG TABLET PO SCH (08:38)
[2020-08-16 11:10] VITALS: BP 142/80
[2020-08-16] MEDS ORDERED: HYDRALAZINE HCL 50MG TABLET PO SCH (14:00)
[2020-08-17] MEDS ORDERED: ISOSORBIDE MONONITRATE 30MG TABLET SR 24HR PO SCH (09:00)
== END 2020-08-16 12:46 | disposition home or self-care (01) | DRG 205 ==
LOC: ER 00:24 → 8WST 03:03 → ENRESERV 08:08
PROVIDERS: ADMIT Internal Medicine; ATTEND Internal Medicine
PROC: 5A1D70Z Performance of Urinary Filtration, Intermittent, Less than 6 Hours Per Day (ICD-10-PCS; principal; 2020-08-12)
PROC: 5A1D70Z Performance of Urinary Filtration, Intermittent, Less than 6 Hours Per Day (ICD-10-PCS; 2020-08-13)
DX: M94.0 Chondrocostal junction syndrome [Tietze] (principal); I50.33 Acute on chronic diastolic (congestive) heart failure; I71.02 Dissection of abdominal aorta; N18.6 End stage renal disease; I13.2 Hypertensive heart and chronic kidney disease with heart failure and with stage 5 chronic kidney disease, or end stage renal disease; I69.351 Hemiplegia and hemiparesis following cerebral infarction affecting right dominant side; J98.11 Atelectasis; R07.89 Other chest pain; I16.0 Hypertensive urgency; I35.0 Nonrheumatic aortic (valve) stenosis; K21.9 Gastro-esophageal reflux disease without esophagitis; D64.9 Anemia, unspecified; I71.9 Aortic aneurysm of unspecified site, without rupture; J44.9 Chronic obstructive pulmonary disease, unspecified; G89.29 Other chronic pain; E66.9 Obesity, unspecified; E11.22 Type 2 diabetes mellitus with diabetic chronic kidney disease; D63.8 Anemia in other chronic diseases classified elsewhere; Z99.2 Dependence on renal dialysis; Z68.29 Body mass index [BMI] 29.0-29.9, adult; Z88.5 Allergy status to narcotic agent; Z88.6 Allergy status to analgesic agent; Z91.041 Radiographic dye allergy status
CPT/HCPCS: 36415; 71045; 71250; 80053; 83880; 84484; 85025; 86705; 86709; 86803; 87340; 93005; 99285; J1200; J1644; J2270; J2405; Q0163

== ENCOUNTER 2021-08-05 04:34 | Inpatient (IN) | payer MEDICARE, MEDICAID ==
[~2021-08-05] VITALS: Ht 165.1 cm; Wt 82.6 kg
[2021-08-05] VITALS (43 sets, daily range): BP systolic 70–191; BP diastolic 42–141
[~2021-08-05 04:34] MED LIST changes: +COR12 PO
[2021-08-05] MEDS ORDERED: NITROGLYCERIN OINT 1GM/INCH UDPKT TD ONE (05:30)
[2021-08-05 05:38] LABS: EOSINOPHILS % 9.1 % (0.0-5.0); HEMATOCRIT. 27.3 % (36.0-48.0); HEMOGLOBIN. 8.7 g/dL (12.0-16.0); MEAN CORPUSCULAR HEMOGLOBIN 31.3 pg (28.0-32.0); MEAN CORPUSCULAR VOLUME 97.7 fL (81.0-99.0); MEAN PLATELET VOLUME 8.4 fl (7.4-10.4); MONOCYTES % 7.1 % (2.0-8.0); NEUTROPHILS % 54.8 % (40.0-76.0); PLATELET 150 x1000/uL (130-400); RED BLOOD CELL COUNT 2.79 mill/uL (4.2-5.4); RED CELL DISTRIBUTION WIDTH 20.2 % (11.6-14.6)
[2021-08-05 05:44] LABS: CHLORIDE 109 mEq/L (98-107)
[2021-08-05 05:45] LABS: PROTHROMBIN TIME 10.8 sec (9.6-11.0)
[2021-08-05] MEDS ORDERED: MORPHINE SULFATE 4 MG/ML CPJ (NOT FOR IM USE) IV ONE ×2 (06:30→08:00)
[2021-08-05] MEDS: NITROGLYCERIN 0.4MG TABLET SL SL PRN ×2 (07:25→07:49)
[2021-08-05] MEDS ORDERED: NITROGLYCERIN 50MG PREMIX 250 ML IV ONE (08:00)
[2021-08-05] MEDS: NITROGLYCERIN 50MG PREMIX 250 ML IV SCH ×2 (08:54→11:11)
[2021-08-05] MEDS ORDERED: ACETAMINOPHEN 325MG TABLET PO PRN (10:45)
[2021-08-05] MEDS ORDERED: GUAIFENESIN 200MG/10ML SUGAR FREE UDC PO PRN (10:45)
[2021-08-05] MEDS ORDERED: DOCUSATE SODIUM 100MG CAPSULE PO PRN (10:45)
[2021-08-05] MEDS ORDERED: ONDANSETRON HCL 4MG/2ML INJ IV PRN (10:45)
[2021-08-05] MEDS ORDERED: MAGNESIUM/ALUMINUM HYDROXIDE/SIMETHICONE 30ML UDC PO PRN (10:45)
[2021-08-05] MEDS ORDERED: CLONIDINE 0.1MG TABLET PO PRN (10:45)
[2021-08-05] MEDS: DIPHENHYDRAMINE 50MG/ML VIAL IV PRN ×3 (11:07→21:09)
[2021-08-05] MEDS: ENOXAPARIN 30MG/0.3ML SYR SUBCUT SCH (11:08)
[2021-08-05] MEDS: CARVEDILOL 12.5MG TABLET PO SCH (11:10)
[2021-08-05] MEDS: AMLODIPINE 10MG TABLET PO SCH (11:10)
[2021-08-05] MEDS: AZITHROMYCIN 500 MG in DEXT 5% WATER 250 ML IV SCH (13:21)
[2021-08-05] MEDS: CEFTRIAXONE 1,000 MG in DEXTROSE 5% WATER 50 ML IV SCH (13:21)
[2021-08-05] MEDS ORDERED: NITROGLYCERIN 50MG PREMIX 250 ML IV PRN (15:00)
[2021-08-05] MEDS ORDERED: LIDOCAINE HCL/PF 1% 10 MG/ML 5ML VIAL ONE (15:03)
[2021-08-05 15:06] LABS: HEPATITIS B SURFACE ANTIGEN NEGATIVE
[2021-08-05] MEDS: ONDANSETRON HCL 4MG/2ML INJ IV PRN ×2 (15:06→23:06)
[2021-08-05] MEDS: MORPHINE SULFATE 2 MG/ML CPJ (NOT FOR IM USE) IV PRN ×2 (15:06→23:07)
[2021-08-05] MEDS: HYDRALAZINE HCL 100MG TABLET PO SCH (21:11)
[2021-08-06] VITALS (25 sets, daily range): BP systolic 109–168; BP diastolic 49–99
[2021-08-06] MEDS: DIPHENHYDRAMINE 50MG/ML VIAL IV PRN ×5 (01:52→21:48)
[2021-08-06] MEDS: ONDANSETRON HCL 4MG/2ML INJ IV PRN (05:38)
[2021-08-06] MEDS: MORPHINE SULFATE 2 MG/ML CPJ (NOT FOR IM USE) IV PRN ×3 (05:39→23:35)
[2021-08-06 05:54] LABS: BASOPHILS % 0.7 % (0.0-2.0); EOSINOPHILS % 8.2 % (0.0-5.0); HEMATOCRIT. 23.8 % (36.0-48.0); HEMOGLOBIN. 7.9 g/dL (12.0-16.0); LYMPHOCYTES % 20.7 % (20.0-50.0); MEAN CORPUSCULAR HEMOGLOBIN 31.5 pg (28.0-32.0); MEAN CORPUSCULAR VOLUME 95.4 fL (81.0-99.0); MEAN PLATELET VOLUME 7.9 fl (7.4-10.4); NEUTROPHILS % 62.4 % (40.0-76.0); PLATELET 123 x1000/uL (130-400); RED CELL DISTRIBUTION WIDTH 19.3 % (11.6-14.6)
[2021-08-06 06:06] LABS: CHLORIDE 106 mEq/L (98-107)
[2021-08-06] MEDS: ENOXAPARIN 30MG/0.3ML SYR SUBCUT SCH (08:23)
[2021-08-06] MEDS: HYDRALAZINE HCL 100MG TABLET PO SCH ×2 (08:24→21:48)
[2021-08-06] MEDS: AMLODIPINE 10MG TABLET PO SCH (08:24)
[2021-08-06] MEDS: CARVEDILOL 12.5MG TABLET PO SCH (08:24)
[2021-08-06] MEDS: ISOSORBIDE MONONITRATE 60MG TABLET SR 24HR PO SCH (09:54)
[2021-08-06] MEDS: GUAIFENESIN 600MG ER TABLET PO SCH ×2 (09:55→21:48)
[2021-08-06] MEDS: CEFTRIAXONE 1,000 MG in DEXTROSE 5% WATER 50 ML IV SCH (14:27)
[2021-08-06] MEDS: AZITHROMYCIN 500 MG in DEXT 5% WATER 250 ML IV SCH (14:28)
[2021-08-06] MEDS ORDERED: NALOXONE HCL 0.4MG/ML VIAL IV PRN (15:30)
[2021-08-06] MEDS ORDERED: EPOETIN ALFA 10000UNITS/ML VIAL SUBCUT SCH (21:00)
[2021-08-07] VITALS: BP 113/49
[2021-08-07] MEDS: DIPHENHYDRAMINE 50MG/ML VIAL IV PRN ×3 (03:20→18:57)
[2021-08-07 04:00] VITALS: BP 121/52
[2021-08-07 07:21] LABS: BASOPHILS % 0.9 % (0.0-2.0); EOSINOPHILS % 11.6 % (0.0-5.0); HEMATOCRIT. 22.2 % (36.0-48.0); HEMOGLOBIN. 7.3 g/dL (12.0-16.0); LYMPHOCYTES % 23.2 % (20.0-50.0); MEAN CORPUSCULAR HEMOGLOBIN 30.7 pg (28.0-32.0); MEAN CORPUSCULAR VOLUME 93.4 fL (81.0-99.0); MEAN PLATELET VOLUME 8.3 fl (7.4-10.4); MONOCYTES % 10.4 % (2.0-8.0); NEUTROPHILS % 53.9 % (40.0-76.0); PLATELET 93 x1000/uL (130-400); RED BLOOD CELL COUNT 2.37 mill/uL (4.2-5.4); RED CELL DISTRIBUTION WIDTH 18.7 % (11.6-14.6)
[2021-08-07 08:00] VITALS: BP 121/59
[2021-08-07] MEDS ORDERED: FAMOTIDINE 20MG/2ML VIAL IV NR (09:00)
[2021-08-07] MEDS ORDERED: DIPHENHYDRAMINE 50MG/ML VIAL IV NR (09:00)
[2021-08-07] MEDS ORDERED: HYDROCORTISONE SOD SUCCINATE 100 MG/2 ML VIAL IV NR (09:00)
[2021-08-07] MEDS: MORPHINE SULFATE 2 MG/ML CPJ (NOT FOR IM USE) IV PRN ×2 (10:02→21:56)
[2021-08-07] MEDS: ENOXAPARIN 30MG/0.3ML SYR SUBCUT SCH (10:02)
[2021-08-07] MEDS: AMLODIPINE 10MG TABLET PO SCH (10:03)
[2021-08-07] MEDS: CARVEDILOL 12.5MG TABLET PO SCH (10:03)
[2021-08-07] MEDS: GUAIFENESIN 600MG ER TABLET PO SCH ×2 (10:03→21:56)
[2021-08-07] MEDS: ISOSORBIDE MONONITRATE 60MG TABLET SR 24HR PO SCH (10:03)
[2021-08-07] MEDS: HYDRALAZINE HCL 100MG TABLET PO SCH ×2 (10:03→21:57)
[2021-08-07 12:00] VITALS: BP 116/66
[2021-08-07] MEDS: CEFTRIAXONE 1,000 MG in DEXTROSE 5% WATER 50 ML IV SCH (12:42)
[2021-08-07] MEDS: AZITHROMYCIN 500 MG TABLET PO SCH (12:42)
[2021-08-07 16:00] VITALS: BP 113/78
[2021-08-07] MEDS ORDERED: PREDNISONE 20MG TABLET PO NR (19:00)
[2021-08-07 20:00] VITALS: BP 127/59
[2021-08-08] VITALS: BP 129/63
[2021-08-08] MEDS: DIPHENHYDRAMINE 50MG/ML VIAL IV PRN ×3 (00:09→23:50)
[2021-08-08] MEDS ORDERED: PREDNISONE 20MG TABLET PO NR ×2 (01:00→07:00)
[2021-08-08] MEDS: ACETYLCYSTEINE 100MG/ML 10% VIAL 4ML INH SCH ×3 (01:16→17:05)
[2021-08-08] MEDS: ALBUTEROL (0.083%) 2.5MG/3ML NEB HHN PRN ×3 (01:17→17:05)
[2021-08-08 04:00] VITALS: BP 113/62
[2021-08-08] MEDS: MORPHINE SULFATE 2 MG/ML CPJ (NOT FOR IM USE) IV PRN ×2 (06:54→20:31)
[2021-08-08] MEDS ORDERED: DIPHENHYDRAMINE 50MG CAPSULE PO NR (07:00)
[2021-08-08 07:37] LABS: HEMOGLOBIN. 7.9 g/dL (12.0-16.0); MEAN CORPUSCULAR HEMOGLOBIN 31.1 pg (28.0-32.0); MEAN CORPUSCULAR VOLUME 94.2 fL (81.0-99.0); MEAN PLATELET VOLUME 8.3 fl (7.4-10.4); PLATELET 110 x1000/uL (130-400); RED BLOOD CELL COUNT 2.55 mill/uL (4.2-5.4); RED CELL DISTRIBUTION WIDTH 18.2 % (11.6-14.6)
[2021-08-08 08:00] VITALS: BP 152/85
[2021-08-08] MEDS ORDERED: IOHEXOL-350 100 ML BOTTLE ONE (08:28)
[2021-08-08] MEDS: AMLODIPINE 10MG TABLET PO SCH (09:00)
[2021-08-08] MEDS: HYDRALAZINE HCL 100MG TABLET PO SCH ×2 (09:00→20:29)
[2021-08-08] MEDS: CARVEDILOL 12.5MG TABLET PO SCH (09:00)
[2021-08-08] MEDS: ISOSORBIDE MONONITRATE 60MG TABLET SR 24HR PO SCH (11:02)
[2021-08-08] MEDS: GUAIFENESIN 600MG ER TABLET PO SCH ×2 (11:03→20:30)
[2021-08-08] MEDS: AZITHROMYCIN 500 MG TABLET PO SCH (11:03)
[2021-08-08] MEDS: ENOXAPARIN 30MG/0.3ML SYR SUBCUT SCH (11:03)
[2021-08-08 11:38] LABS: PLATELET ESTIMATE DECREASED
[2021-08-08 12:00] VITALS: BP 135/78
[2021-08-08] MEDS: CEFTRIAXONE 1,000 MG in DEXTROSE 5% WATER 50 ML IV SCH (13:22)
[2021-08-08 16:00] VITALS: BP 159/66
[2021-08-08 20:00] VITALS: BP 165/82
[2021-08-08] MEDS ORDERED: EPOETIN ALFA-EPBX 10,000 UNIT/ML VIAL SUBCUT SCH (21:00)
[2021-08-09] VITALS: BP 130/75
[2021-08-09] MEDS: ACETYLCYSTEINE 100MG/ML 10% VIAL 4ML INH SCH ×2 (01:13→09:10)
[2021-08-09] MEDS: IPRATROPIUM/ALBUTEROL 0.5-3(2.5)MG/3ML NEB HHN SCH ×2 (01:13→09:10)
[2021-08-09 02:52] VITALS: BP 113/59
[2021-08-09 04:00] VITALS: BP 133/75
[2021-08-09] MEDS: DIPHENHYDRAMINE 50MG/ML VIAL IV PRN ×2 (04:24→09:20)
[2021-08-09 08:00] VITALS: BP 113/59
[2021-08-09] MEDS: GUAIFENESIN 600MG ER TABLET PO SCH (08:15)
[2021-08-09] MEDS: AZITHROMYCIN 500 MG TABLET PO SCH (08:15)
[2021-08-09] MEDS: MORPHINE SULFATE 2 MG/ML CPJ (NOT FOR IM USE) IV PRN (08:16)
[2021-08-09] MEDS: ENOXAPARIN 30MG/0.3ML SYR SUBCUT SCH (08:16)
[2021-08-09] MEDS: CARVEDILOL 12.5MG TABLET PO SCH (09:00)
[2021-08-09] MEDS: HYDRALAZINE HCL 100MG TABLET PO SCH (09:00)
[2021-08-09] MEDS: AMLODIPINE 10MG TABLET PO SCH (09:00)
[2021-08-09] MEDS: ISOSORBIDE MONONITRATE 60MG TABLET SR 24HR PO SCH (09:00)
[2021-08-09 12:00] VITALS: BP 122/62
== END 2021-08-09 13:05 | disposition home health service (06) | DRG 291 ==
LOC: ER 04:45 → CVICU 07:47 → 7WST 08-06 16:53
PROVIDERS: ADMIT Hospitalist; ATTEND Hospitalist
PROC: 5A09357 Assistance with Respiratory Ventilation, Less than 24 Consecutive Hours, Continuous Positive Airway Pressure (ICD-10-PCS; principal; 2021-08-05)
PROC: 5A1D70Z Performance of Urinary Filtration, Intermittent, Less than 6 Hours Per Day (ICD-10-PCS; 2021-08-05)
PROC: 05HY33Z Insertion of Infusion Device into Upper Vein, Percutaneous Approach (ICD-10-PCS; 2021-08-05)
PROC: B54MZZA Ultrasonography of Right Upper Extremity Veins, Guidance (ICD-10-PCS; 2021-08-05)
PROC: 5A1D70Z Performance of Urinary Filtration, Intermittent, Less than 6 Hours Per Day (ICD-10-PCS; 2021-08-06)
PROC: 5A1D70Z Performance of Urinary Filtration, Intermittent, Less than 6 Hours Per Day (ICD-10-PCS; 2021-08-08)
DX: I13.2 Hypertensive heart and chronic kidney disease with heart failure and with stage 5 chronic kidney disease, or end stage renal disease (principal); I50.33 Acute on chronic diastolic (congestive) heart failure; N18.6 End stage renal disease; J96.01 Acute respiratory failure with hypoxia; I69.351 Hemiplegia and hemiparesis following cerebral infarction affecting right dominant side; E11.22 Type 2 diabetes mellitus with diabetic chronic kidney disease; I16.0 Hypertensive urgency; I25.10 Atherosclerotic heart disease of native coronary artery without angina pectoris; D64.9 Anemia, unspecified; R77.8 Other specified abnormalities of plasma proteins; Z99.2 Dependence on renal dialysis; Z79.82 Long term (current) use of aspirin; Z79.899 Other long term (current) drug therapy; Z88.8 Allergy status to other drugs, medicaments and biological substances; Z91.041 Radiographic dye allergy status; Z93.1 Gastrostomy status; Z93.0 Tracheostomy status; I25.2 Old myocardial infarction; Z95.2 Presence of prosthetic heart valve
CPT/HCPCS: 36415; 36573; 71045; 71275; 80048; 80053; 83880; 84484; 85025; 86705; 86709; 86803; 87340; 93005; 93306; 94640; 94660; 97110; 97112; 97161; 97535; 99291; C1725; C1769; C1893; J0456; J0696; J0885; J1200; J1650; J1720; J2270; J2405; J3490; J7060; J7512; J7608; Q0163; Q9967